=== PATIENT | male | born 1955 | race Caucasian/White ===

== ENCOUNTER 2019-12-10 09:04 | Outpatient (CLI) | payer MEDICARE, SELFPAY ==
--- NOTE | ~2019-12-10 | XR_ITS ---
XR chest 2V DATE: 12/10/2019 09:25 INDICATION: Other long-term drug therapy. History of smoking. TECHNIQUE: PA and lateral views COMPARISON: 03/12/2018 PA and lateral chest FINDINGS: There is bilateral hyperinflation, consistent with COPD. No pulmonary infiltrate or consoli dation, pleural effusion or pulmonary vascular congestion or pneumothorax. Normal heart size. No hilar or mediastinal enlargement. Included skeletal structures are unremarkable. IMPRESSION: COPD Reviewed, dictated and finalized at location B. IMPRESSION: COPD
== END 2019-12-10 09:05 | disposition home or self-care (01) ==
PROVIDERS: PCP Family Medicine; Visit Provider Internal Medicine
DX: M05.749 Rheumatoid arthritis with rheumatoid factor of unspecified hand without organ or systems involvement (principal); J44.9 Chronic obstructive pulmonary disease, unspecified; Z71.89 Other specified counseling; Z79.899 Other long term (current) drug therapy
CPT/HCPCS: 71046

== ENCOUNTER 2020-05-21 11:55 | Emergency (ER) | payer MEDICARE, SELFPAY ==
--- NOTE | ~2020-05-21 | XR_ITS ---
EXAMINATION: [id number]_CR DATE: 05/21/2020 12:18 INDICATION: Lateral left rib pain post fall TECHNIQUE: A frontal inspiratory view of the chest and 3 views of the left ribs were obtained. COMPARISON: Chest radiograph dated 12/10/2019 FINDINGS: Nondisplaced fractures of the anterior left sixth and seventh ribs. Emphysema with increased lucency and architectural distortion in the upper lung zones. No focal airspace opacities, pulmonary edema, p leural effusion or pneumothorax. Arch size is normal with prominent bilateral pericardial fat pads. IMPRESSION: 1. Nondisplaced anterior left sixth and seventh rib fractures. No pneumothorax or acute cardiopulmona ry disease. 2. Emphysema. Reviewed, dictated and finalized at location A. AND FOUND CLERK IMPRESSION: 1. Nondisplaced anterior left sixth and seventh rib fractures. No pneumothorax or acute cardiopulmonary disease. 2. Emphysema.
--- NOTE | 2020-05-21 11:58 | ED.GENADULT ---
HPI - General Adult General Chief complaint: Fall Stated complaint: L/side pain Time Seen by Provider: 05/21/20 12:17 Source: patient and RN notes reviewed Mode of arrival: ambulatory Limitations: no limitations History of Present Illness HPI narrative: 64-year-old male with history of smoking presents with concern for left rib pain. Reports approximately 1 week ago he stumbled while getting off of a step stool and fell into a Hilli[employer] countertop on his left side. Reports pain with breathing, tenderness under the left axilla and below on the left flank. He denies any difficulty breathing, shortness of breath, bruising, swelling. complaint: Rib pain Related Data Home Medications Medication Instructions Recorded Confirmed fenofibrate nanocrystallized 145 mg PO DAILY 03/10/19 05/21/20 isosorbide mononitrate 30 mg PO DAILY 03/10/19 05/21/20 lisinopril 2.5 mg PO DAILY 03/10/19 05/21/20 loratadine 5 mg PO DAILY 03/10/19 05/21/20 metoprolol succinate 50 mg PO DAILY 03/10/19 05/21/20 bicwzhmr-nsn-VJ-lycopen-lutein 1 tablet PO DAILY 03/10/19 05/21/20 [Centrum Silver] nitroglycerin 0.4 mg SUBLINGUAL Q5-15M PRN 03/10/19 05/21/20 rosuvastatin 40 mg PO DAILY 03/10/19 05/21/20 aspirin 81 mg PO DAILY 01/06/20 05/21/20 omeprazole 20 mg capsule,delayed 20 mg PO DAILY 03/10/20 05/21/20 release Allergies Allergy/AdvReac Type Severity Reaction Status Date / Time No Known Drug Allergies Allergy Mild Unknown Verified 03/18/20 09:49 Review of Systems Review of Systems: Narrative: CONSTITUTIONAL: Denies malaise, chills, sweats, or fever. CARDIOVASCULAR: Denies chest pain, palpitations, or edema. RESPIRATORY: Denies cough or dyspnea. Reports left rib pain, left-sided pain with deep breathing and coughing GASTROINTESTINAL: Denies abdominal pain SKIN: Denies bruising, open skin MUSCULOSKELETAL: Reports left rib pain All systems reviewed & are unremarkable except as noted in HPI and below PMFSH Past Medical History Medical History BMI 26.0-26.9,adult CAD (coronary artery disease) Degenerative joint disease (DJD) of lumbar spine Insomnia Other specified counseling Tobacco abuse Family History Family History Father Diabetes mellitus Family history of malignant neoplasm Mother Family history of renal cell carcinoma Social History Social History Smoking status: Current every day smoker Smoking end date: 05/20/09 Alcohol intake: never Gender identity (if verbalized by the patient): Male Comments At time of signature, agree with nursing past medical, surgical, social and family history. There is no relevant family history pertinent to the presenting complaint Exam Narrative: Exam Narrative: GENERAL: Well-appearing, well-nourished, and in no acute distress. HEAD: Normocephalic EYES: PERRLA, conjunctivae clear ENT: Mucous membranes moist. NECK: Supple. CHEST: No respiratory distress. Clear to auscultation. No bony deformities, no asymmetry. Speaks in full sentences. Tenderness palpation near rib number on the left HEART: Regular rate and rhythm. No murmur heard. SKIN: Warm, dry, no rash. NEURO: Alert and oriented x3. PSYCH: Normal mood and affect Course Course Emergency Course: Patient is aware of diagnosis, understands and agrees to treatment plan. Anticipatory guidance given. Patient agrees to follow-up as directed and is aware of reasons to seek care at the emergency department. Portions of this record may have been created with voice recognition software Vital Signs Vital signs: Vital Signs Temperature 98.3 F 05/21/20 12:36 Pulse Rate 63 05/21/20 12:36 Respiratory Rate 20 05/21/20 12:36 Blood Pressure 143/73 H 05/21/20 12:36 Pulse Oximetry 98 05/21/20 12:36 Temperature 98.3 F 05/21/20 12:36 Pulse Rate 63 05/21/20 12:36
[2020-05-21 12:36] VITALS: BP 143/73; PULSE 63; RESP 20; TEMP 36.8; O2SAT 98
--- NOTE | 2020-05-21 13:26 | PC.NURSE ---
instructed on incentive spirameter use demonstrated use
== END 2020-05-21 13:27 | disposition home or self-care (01) ==
PROVIDERS: Emergency Provider Nurse Practitioner; PCP Family Medicine
DX: R07.81 Pleurodynia (principal); S22.42XA Multiple fractures of ribs, left side, initial encounter for closed fracture; W17.89XA Other fall from one level to another, initial encounter; I25.10 Atherosclerotic heart disease of native coronary artery without angina pectoris; M47.816 Spondylosis without myelopathy or radiculopathy, lumbar region
CPT/HCPCS: 71101; 99213; G0463

== ENCOUNTER 2021-02-17 13:30 | Outpatient (CLI) | payer MEDICARE, SELFPAY ==
--- NOTE | 2021-02-17 17:06 | WPDPFTINT ---
PFT Procedure Performed PFT Procedure Performed Spirometry with Pre/Post Bronchodilator Plethysmography (Lung Vol) Diffusing Cap (DLCO) Flow Vol Loop PFT Interpretation This is a pulmonary function test with pre and post-bronchodilator spirometry, plethysmography and diffusing capacity. The test was performed and results interpreted in accordance with the 2019 and 2005 ATS/ERS Task Force guidelines respectively using the Global Lung Function Initiative-2012 reference equations. Patient demonstrated good effort and cooperation. Reproducibility criteria were met. The quality of the pre bronchodilator spirometry maneuver was Grade A and post bronchodilator spirometry maneuver was Grade B. Findings: Spirometry: There is decreased maximal expiratory airflow at low lung volumes with concave expiratory flow tracing. The pre bronchodilator FVC is 5.03 L, 111% predicted. The pre bronchodilator FEV1 is 3.15 L, 91% predicted. The FEV1: FVC ratio 63%. The post bronchodilator FVC is 5.08 L, representing 1% increase. The post bronchodilator FEV1 is 3.05 L, representing a 3% decrease. The post bronchodilator FVC FEV1: FVC ratio 60%. Plethysmography: The total lung capacity is 7.68 L, 107% predicted. The functional residual capacity is 4.31 L, 114% predicted. The residual volume is 2.45 L, 102% predicted. Diffusing capacity: The absolute diffusion capacity is 18.5, 67% predicted. The diffusing capacity corrected for alveolar volume is 2.66, 66% predicted. Impression: There is a mild obstructive abnormality with a normal FEV1 and without significant improvement after inhaling a single dose of albuterol. The lung volumes are normal. The absolute diffusing capacity is mildly decreased and remains mildly decreased when corrected for alveolar volume. There are no prior studies for comparison
== END 2021-02-17 13:31 | disposition home or self-care (01) ==
PROVIDERS: PCP Family Medicine; Visit Provider Family Medicine
DX: J43.9 Emphysema, unspecified (principal); R94.2 Abnormal results of pulmonary function studies
CPT/HCPCS: 94060; 94726; 94729

== ENCOUNTER 2021-05-05 09:54 | Outpatient (CLI) | payer MEDICARE, SELFPAY ==
--- NOTE | ~2021-05-05 | CT_ITS ---
EXAMINATION: CT lung screening DATE: 05/05/2021 10:12 INDICATION: Personal history of nicotine dependence, current smoker with 112 pack year history TECHNIQUE: Computed tomography (CT) of the chest was performed without intravenous contrast. The dose -length product (DLP) was 139.02 mGy-cm. Automated exposure control and iterative reconstruction tech Unda were employed. COMPARISON: 07/19/2008 FINDINGS: There is moderate emphysema. A 2 mm nodule in the left upper lobe is stable compared to the prior examination. There is no pleural effusion or pneumothorax. The lungs are free of acute opaciti es. There is chronic asymmetric enlargement of the right thyroid lobe. Calcified coronary artery athe rosclerosis is noted. No pathologically enlarged thoracic lymph nodes are identified. The heart size is normal. There is mild thoracic spondylosis. IMPRESSION: 1. Lung-RADS category 2: Benign appearance or behavior. Continue annual screening with noncontrast lo w-dose chest CT in 12 months. Reviewed, dictated and finalized at location A. NING MANAGER IMPRESSION: 1. Lung-RADS category 2: Benign appearance or behavior. Continue annual screeni ng with noncontrast low-dose chest CT in 12 months.
== END 2021-05-05 09:55 | disposition home or self-care (01) ==
LOC: ANHIMG 10:00
PROVIDERS: PCP Family Medicine; Visit Provider Nurse Practitioner Family
DX: Z12.2 Encounter for screening for malignant neoplasm of respiratory organs (principal); Z87.891 Personal history of nicotine dependence
CPT/HCPCS: 71271

== ENCOUNTER 2021-12-13 13:36 | Outpatient (CLI) | payer MEDICARE, SELFPAY ==
--- NOTE | ~2021-12-13 | XR_ITS ---
XR hip BI 2V w AP pelvis 12/13/2021 13:54 Indication: Osteoarthritis Procedure: AP pelvis and 2 views of each hip Comparison: No prior studies for comparison. Findings: There is mild osteoarthritis of the hips bilaterally. No fracture or traumatic malalignment . Pelvic rings are intact. Sacral foramen are symmetric. Impression: 1: Mild bilateral symmetric osteoarthritis of the hips. Reviewed, dictated and finalized at location A. Impression: 1: Mild bilateral symmetric osteoarthritis of the hips.
== END 2021-12-13 13:37 | disposition home or self-care (01) ==
LOC: ANHIMG 13:39
PROVIDERS: PCP Family Medicine; Visit Provider Internal Medicine
DX: L10.9 Pemphigus, unspecified (principal); M16.0 Bilateral primary osteoarthritis of hip; Z51.81 Encounter for therapeutic drug level monitoring; Z79.899 Other long term (current) drug therapy; Z71.89 Other specified counseling; M47.816 Spondylosis without myelopathy or radiculopathy, lumbar region
CPT/HCPCS: 73521

== ENCOUNTER 2022-05-07 09:30 | Outpatient (CLI) | payer MEDICARE, SELFPAY ==
--- NOTE | ~2022-05-07 | CT_ITS ---
EXAMINATION:CT lung screening DATE: 05/07/2022 09:46 INDICATION: Tobacco use. Current smoker with 90 pack year history. TECHNIQUE: Computed tomography (CT) of the chest was performed without intravenous contrast. Automate d exposure control and iterative reconstruction technique were employed. The dose-length product (DLP ) was 146.61 mGy-cm. COMPARISON: Chest CT 05/05/2021 FINDINGS: There is severe emphysema. A calcified left lung nodule is consistent with old granulomatou s disease. There is stable mild scarring at the lung apices. No pleural effusion. The heart size is n ormal. There are coronary artery calcifications. No pericardial effusion. There is chronic enlargemen t of right thyroid lobe. There is mild bilateral gynecomastia. There is mild thoracic spondylosis. IMPRESSION: 1. Lung-RADS category 2: Benign appearance or behavior. Continue annual screening with noncontrast lo w-dose chest CT in 12 months. Reviewed, dictated and finalized at location A. ABLE FEED MILL OPERATOR IMPRESSION: 1. Lung-RADS category 2: Benign appearance or behavior. Continue annual screeni ng with noncontrast low-dose chest CT in 12 months.
== END 2022-05-07 09:31 | disposition home or self-care (01) ==
PROVIDERS: PCP Family Medicine; Visit Provider Nurse Practitioner Family
DX: Z12.2 Encounter for screening for malignant neoplasm of respiratory organs (principal); Z87.891 Personal history of nicotine dependence
CPT/HCPCS: 71271

== ENCOUNTER 2022-06-28 01:45 | Day surgery (SDC) | payer MEDICARE, SELFPAY ==
[2022-06-18 15:16] VITALS: BMI 27.2
--- NOTE | 2022-06-27 14:36 | PM.HPGS ---
History of Present Illness History of Present Illness Consent: Risks, benefits, and alternatives have been discussed and questions answered. Patient agrees to proceed with procedure. Chief complaint: anemia Narrative: Munir Acharya is a 67 year old male Referred for colon cancer screening and for investigation of anemia. He has a history of polyps, removed about 4 years ago Review of Systems Review of Systems: All systems reviewed & are unremarkable except as noted in HPI and below PMFSH Past Medical History Medical History Abnormal PFT Anemia BMI 26.0-26.9,adult BMI 27.0-27.9,adult BMI 28.0-28.9,adult BMI 36.0-36.9,adult Bullous pemphigus CAD (coronary artery disease) COPD (chronic obstructive pulmonary disease) Degenerative joint disease (DJD) of lumbar spine Depression with anxiety Dermatitis Fatigue Hip osteoarthritis Insomnia Other specified counseling Pain, joint, hip, left Tobacco abuse Vitamin D deficiency Family History Family History Father Diabetes mellitus Family history of malignant neoplasm Cerebrovascular accident Acute myocardial infarction Heart disease Mother Family history of renal cell carcinoma Diabetes mellitus Kidney failure Sibling No problems noted. 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[employer] Gender identity (if verbalized by the patient): Male Spiritual care concerns: No Meds Home Medications and Allergies Home Medications Medication Instructions Recorded Confirmed Type fenofibrate nanocrystallized 145 145 mg PO DAILY 03/10/19 06/18/22 History mg tablet isosorbide mononitrate 30 mg 15 mg PO DAILY 03/10/19 06/18/22 History tablet,extended release 24 hr nitroglycerin 0.4 mg sublingual 0.4 mg sublingual Q5-15M PRN Chest 03/10/19 06/18/22 History tablet Pain rosuvastatin 40 mg tablet 40 mg PO DAILY 03/10/19 06/18/22 History aspirin 81 mg tablet,delayed 81 mg PO DAILY 01/06/20 06/18/22 History release omeprazole 20 mg capsule,delayed 20 mg PO DAILY 03/10/20 06/18/22 History release mupirocin 2 % topical ointment 1 applic topical TID open sores 09/05/20 06/18/22 Rx #60 grams triamcinolone acetonide 0.1 % 1 applic topical BID #80 grams 10/04/20 06/18/22 Rx topical cream metoprolol succinate 100 mg 100 mg PO DAILY 01/31/21 06/28/22 History tablet,extended release 24 hr minocycline 100 mg capsule 100 mg PO DAILY 05/18/21 06/18/22 History cyclobenzaprine 10 mg tablet 10 mg PO TID PRN muscle spasm #30 07/26/21 06/18/22 Rx tabs upadacitinib 15 mg tablet,extended 15 mg PO DAILY #90 tabs 10/13/21 06/18/22 Rx release 24 hr (Rinvoq) hydroxychloroquine 200 mg tablet 200 mg PO BID #180 tabs 12/27/21 06/18/22 Rx losartan 25 mg tablet 25 mg PO DAILY 12/29/21 06/18/22 History alprazolam 0.5 mg tablet (Xanax) 0.5 mg PO TID PRN anxiety #60 tabs 01/29/22 06/18/22 Rx escitalopram oxalate 10 mg tablet 10 mg PO DAILY #30 tabs 03/28/22 06/18/22 Rx glipizide 5 mg tablet 5 mg PO DAILY #90 tabs 05/21/22 06/18/22 Rx trazodone 50 mg tablet 50 mg PO .QHS #30 tabs 05/21/22 06/18/22 Rx prednisone 2.5 mg tablet 2.5 mg PO DAILY #40 tabs 06/07/22 06/18/22 Rx bupropion HCl 300 mg 24 hr tablet, 300 mg PO QAM #90 tabs 06/12/22 06/18/22 Rx extended release metformin 1,000 mg tablet 1,000 mg PO BID #180 tabs 06/12/22 06/18/22 Rx tamsulosin 0.4 mg cap
[2022-06-28 09:46] VITALS: BP 133/83; PULSE 63; RESP 20; TEMP 36.3; O2SAT 98
[2022-06-28] MEDS: LACTATED RINGERS 1,000 ML 150 ML IV CONT (09:56)
[2022-06-28 10:02] LABS: Glucose Point of Care 121 mg/dl (65-105)
--- NOTE | 2022-06-28 10:11 | ECG_ITS ---
Measurements Intervals [place] Rate: 61 P: 26 NV: 160 QRS: -21 QRSD: 113 T: 6 QT: 418 QTc: 422 Interpretive Statements SINUS RHYTHM WITH OCCASIONAL VENTRICULAR PREMATURE COMPLEXES BORDERLINE LEFT AXIS DEVIATION [QRS AXIS < -20] NO PREVIOUS ECG AVAILABLE FOR COMPARISON Electronically Signed On 06-28-2022 15:44:03 PAINTER by Kathryn Garcia M.D.
--- NOTE | 2022-06-28 10:14 | WPDANESEPPF ---
Anes - Initial Pre Proc Eval Procedure: Operation Date: 06/28/22 11:00 Proposed Procedures p Colonoscopy - Rob Churchill MD Date/Time: 06/28/22 10:14 Surgeon: Rob Churcihll MD Pre Op Diagnosis: anemia Patient Data Age: 67 Gender: M Height: 1.8 m Weight: 88.2 kg Last Vital Signs Temp 36.3 C L 06/28/22 09:46 Pulse 63 06/28/22 09:46 Resp 20 06/28/22 09:46 BP 133/83 06/28/22 09:46 Pulse Ox 98 06/28/22 09:46 O2 Del Method Room Air 06/28/22 09:46 Allergies Allergy/AdvReac Type Severity Reaction Status Date / Time No Known Drug Allergies Allergy Mild Unknown Verified 06/28/22 09:44 Home Medications Medication Instructions Recorded Confirmed Type fenofibrate nanocrystallized 145 145 mg PO DAILY 03/10/19 06/18/22 History mg tablet isosorbide mononitrate 30 mg 15 mg PO DAILY 03/10/19 06/18/22 History tablet,extended release 24 hr nitroglycerin 0.4 mg sublingual 0.4 mg sublingual Q5-15M PRN Chest 03/10/19 06/18/22 History tablet Pain rosuvastatin 40 mg tablet 40 mg PO DAILY 03/10/19 06/18/22 History aspirin 81 mg tablet,delayed 81 mg PO DAILY 01/06/20 06/18/22 History release omeprazole 20 mg capsule,delayed 20 mg PO DAILY 03/10/20 06/18/22 History release mupirocin 2 % topical ointment 1 applic topical TID open sores 09/05/20 06/18/22 Rx #60 grams triamcinolone acetonide 0.1 % 1 applic topical BID #80 grams 10/04/20 06/18/22 Rx topical cream metoprolol succinate 100 mg 100 mg PO DAILY 01/31/21 06/28/22 History tablet,extended release 24 hr minocycline 100 mg capsule 100 mg PO DAILY 05/18/21 06/18/22 History cyclobenzaprine 10 mg tablet 10 mg PO TID PRN muscle spasm #30 07/26/21 06/18/22 Rx tabs upadacitinib 15 mg tablet,extended 15 mg PO DAILY #90 tabs 10/13/21 06/18/22 Rx release 24 hr (Rinvoq) hydroxychloroquine 200 mg tablet 200 mg PO BID #180 tabs 12/27/21 06/18/22 Rx losartan 25 mg tablet 25 mg PO DAILY 12/29/21 06/18/22 History alprazolam 0.5 mg tablet (Xanax) 0.5 mg PO TID PRN anxiety #60 tabs 01/29/22 06/18/22 Rx escitalopram oxalate 10 mg tablet 10 mg PO DAILY #30 tabs 03/28/22 06/18/22 Rx glipizide 5 mg tablet 5 mg PO DAILY #90 tabs 05/21/22 06/18/22 Rx trazodone 50 mg tablet 50 mg PO .QHS #30 tabs 05/21/22 06/18/22 Rx prednisone 2.5 mg tablet 2.5 mg PO DAILY #40 tabs 06/07/22 06/18/22 Rx bupropion HCl 300 mg 24 hr tablet, 300 mg PO QAM #90 tabs 06/12/22 06/18/22 Rx extended release metformin 1,000 mg tablet 1,000 mg PO BID #180 tabs 06/12/22 06/18/22 Rx tamsulosin 0.4 mg capsule See Rx Instructions .Route 06/12/22 06/18/22 Rx .COMPLEX #90 caps fluticasone fur. 100 mcg-umeclid 1 inh inhalation Q24H 06/15/22 06/18/22 History 62.5 mcg-vilant 25 mcg inhalat.powder (Trelegy Ellipta) sitagliptin phosphate 100 mg 100 mg PO DAILY 06/18/22 06/18/22 History tablet (Januvia) Laboratory Tests 06/28/22 09:53 POC Capillary Glucose 121 mg/dl H mg/dl (65-105) Patient hx anesthesia problems: none Family hx anesthesia problems: none Results Review: All pre-operative results and documents have been reviewed as part of the pre-operative evaluation. [facility] Past Medical History Medical History Abnormal PFT Anemia BMI 26.0-26.9,adult BMI 27.0-27.9,adult BMI 28.0-28.9,adult BMI 36.0-36.9,adult Bullous pemphigus CAD (coronary artery disease) COPD (chronic obstructive pulmonary disease) Degenerative joint disease (DJD) of lumbar spine Depression with anxiety Dermatitis Fatigue Hip osteoarthritis Insomnia Other specified counseling Pain, joint, hip, left Tobacco abuse Vitamin D deficiency Family History Family History Father Diabetes mellitus Family history of malignant neoplasm Cerebrovascular accident Acute myocardial infarction Heart disease Mother Family history of renal ce
--- NOTE | 2022-06-28 10:19 | SUR.PREOP ---
Pt states he felt like he was in atrial fibrillation last night with chest pain when he lied on his left side. Pt took Nitroglycerin last night. Dr. Chacon notified (anesthesiologist). EKG ordered and reviewed by Dr. Chacon who states ok to proceed with colonoscopy.
[2022-06-28 11:02] VITALS: BP 96/60; PULSE 55; RESP 16; O2SAT 98
[2022-06-28 11:12] VITALS: BP 119/56; PULSE 53; RESP 16; O2SAT 96
[2022-06-28 11:22] VITALS: BP 120/58; PULSE 65; RESP 20; O2SAT 100
== END 2022-06-28 11:32 | disposition home or self-care (01) ==
PROVIDERS: PCP Family Medicine; Visit Provider Internal Medicine Gastroenterology
PROC: 0DJD8ZZ Inspection of Lower Intestinal Tract, Via Natural or Artificial Opening Endoscopic (ICD-10-PCS; CPT 45378; principal; 2022-06-28 11:00)
DX: D64.9 Anemia, unspecified (principal); K64.8 Other hemorrhoids; D12.2 Benign neoplasm of ascending colon; I25.10 Atherosclerotic heart disease of native coronary artery without angina pectoris; J44.9 Chronic obstructive pulmonary disease, unspecified; F41.8 Other specified anxiety disorders; E55.9 Vitamin D deficiency, unspecified; F17.210 Nicotine dependence, cigarettes, uncomplicated
CPT/HCPCS: 45380; 82948; 88305; 93005; J2704; J7120

== ENCOUNTER 2023-02-16 10:05 | Emergency (ER) | payer MEDICARE, SELFPAY ==
--- NOTE | ~2023-02-16 | XR_ITS ---
EXAMINATION: XR hand RT min 3V INDICATION: Right hand pain TECHNIQUE: Three views of the right hand are obtained. COMPARISON: None available FINDINGS: Bone alignment is normal. There is no fracture. There is mild osteoarthritis of multiple in terphalangeal joints. There is medial soft tissue swelling of the hand near the metacarpals. IMPRESSION: 1. No acute osseous abnormality. Reviewed, dictated and finalized at location F.
[2023-02-16 10:15] VITALS: BP 137/58; PULSE 62; RESP 18; TEMP 36.2; O2SAT 100
--- NOTE | 2023-02-16 10:36 | ED.UPPEXIN ---
HPI - Extremity Injury (Upper) General Chief Complaint: Extremity Injury, Upper Stated Complaint: fall /upper extremity injuy Time Seen by Provider: 02/16/23 10:25 Source: patient and RN notes reviewed Mode of arrival: ambulatory Limitations: no limitations History of Present Illness HPI narrative: Patient presents today complaining of right hand injury. He tripped over a portion of the [employer] yesterday and fell onto his outstretched hand. Denies numbness or tingling. Currently rates his pain 6/10 and has tried no [id number] interventions prior to arrival. History of rheumatoid arthritis. States pain has improved since the injury. Related Data Home Medications Medication Instructions Recorded Confirmed fenofibrate nanocrystallized 145 145 mg PO DAILY 03/10/19 02/11/23 mg tablet isosorbide mononitrate 30 mg 15 mg PO DAILY 03/10/19 02/11/23 tablet,extended release 24 hr nitroglycerin 0.4 mg sublingual 0.4 mg sublingual Q5-15M PRN Chest 03/10/19 02/11/23 tablet Pain rosuvastatin 40 mg tablet 40 mg PO DAILY 03/10/19 02/11/23 aspirin 81 mg tablet,delayed 81 mg PO DAILY 01/06/20 02/11/23 release omeprazole 20 mg capsule,delayed 20 mg PO DAILY 03/10/20 02/11/23 release minocycline 100 mg capsule 100 mg PO DAILY 05/18/21 02/11/23 losartan 25 mg tablet 50 mg PO DAILY 02/11/23 02/11/23 Allergies Allergy/AdvReac Type Severity Reaction Status Date / Time No Known Drug Allergies Allergy Mild Unknown Verified 02/11/23 11:30 Review of Systems Review of Systems: CONSTITUTIONAL: Denies body aches, fever, chills, or sweats. EYES: Denies visual changes, redness, or discharge. ENT: Denies rhinorrhea, congestion, sore throat, or otalgia. CARDIOVASCULAR: Denies chest pain, palpitations, or edema. RESPIRATORY: Denies cough or dyspnea. GASTROINTESTINAL: Denies abdominal pain, nausea, vomiting, or diarrhea. GENITOURINARY: Denies dysuria or hematuria. SKIN: Denies rash, itching, or wounds. MUSCULOSKELETAL: + right hand injury NEUROLOGIC: Denies headache, numbness, tingling, or weakness. PSYCH: Denies depression or anxiety. PMFSH Past Medical History Medical History Abnormal PFT Anemia BMI 26.0-26.9,adult BMI 27.0-27.9,adult BMI 28.0-28.9,adult BMI 36.0-36.9,adult Bullous pemphigus CAD (coronary artery disease) COPD (chronic obstructive pulmonary disease) Degenerative joint disease (DJD) of lumbar spine Depression with anxiety Dermatitis Fatigue Fatigue Hip osteoarthritis Insomnia Other specified counseling Pain, joint, hip, left Tobacco abuse Vitamin D deficiency Family History Family History Father Diabetes mellitus Family history of malignant neoplasm Cerebrovascular accident Acute myocardial infarction Heart disease Mother Family history of renal cell carcinoma Diabetes mellitus Kidney failure Sibling No problems noted. Social History Social History Smoking packs per day: 0.75 Smoking cigarettes per day: 15.0 Years smoked: 45 Smoking pack-years: 33.75 Smoking status: Current some day smoker Tobacco type: cigarettes Second hand tobacco smoke exposure: Yes Alcohol intake: never Substance use: former Substance use type: marijuana Last use: 2021 Lack of Transportation: No Lack of Food: Never True Current Housing: I Have Housing Concerned About Future Housing: No Difficulty Paying Gas/Electric Bills: No Difficulty Paying for Meds: No Currently Unemployed: No Education: High School Diploma/GED Difficulty w/ Childcare or Family Care: No Living arrangements: with family Occupation/Education: retired Additional occupation/education comments: [employer] Gender identity (if verbalized by the patient): Male Spiritual care
== END 2023-02-16 10:47 | disposition home or self-care (01) ==
PROVIDERS: Emergency Provider Nurse Practitioner; PCP Family Medicine
DX: S60.221A Contusion of right hand, initial encounter (principal); I25.10 Atherosclerotic heart disease of native coronary artery without angina pectoris; J44.9 Chronic obstructive pulmonary disease, unspecified; F17.210 Nicotine dependence, cigarettes, uncomplicated; W01.0XXA Fall on same level from slipping, tripping and stumbling without subsequent striking against object, initial encounter
CPT/HCPCS: 73130; 99213; G0463

== ENCOUNTER 2023-03-12 10:48 | Outpatient (CLI) | payer MEDICARE, SELFPAY ==
[2023-03-12 11:09] LABS: Hematocrit 36.5 % (42.0-52.0); Hemoglobin 11.8 g/dL (14.0-18.0); Mean Corpuscular HGB Conc 32.3 g/dl (32-36); Mean Corpuscular Hemoglobin 30.1 pg (26-34); Mean Corpuscular Volume 93.1 fl (80-100); Mean Platelet Volume 9.6 fl (7.4-10.4); Platelet Count Result 326 k/mm3 (150-375); Red Blood Count 3.92 M/mm3 (4.6-6.20); Red Cell Distribution Width 15.5 % (11.5-14.5); White Blood Count 7.3 K/mm3 (4.5-10.0)
[2023-03-12 11:31] LABS: Appearance Urine Clear (Clear); Bacteria Urine None Seen /hpf; Bilirubin Urine Negative (Negative); Blood Urine Negative (Negative); Color Urine Yellow (Yellow); Glucose Urine UA 2+ mg/dL (Negative); Ketones Urine Negative (Negative); Leukocyte Esterase Ur Trace LEU/UL (Negative); Nitrate Urine Negative (Negative); Non Pathogenic Casts 0-2; Protein Urine Negative (Negative); RBC Urine 0-2 /hpf (0-2); Specific Grav Ur 1.013 (1.001-1.035); Squamous Epithelial Cell Urine None seen /hpf (Few); Urobilinogen Urine 0.2 mg/dL (<2.0); pH Urine 6.5 (5.0-9.0)
[2023-03-12 11:45] LABS: Alanine Aminotransferase 23 U/L (6-50); Albumin Level 4.5 g/dL (3.5-5.1); Alkaline Phosphatase 64 U/L (38-126); Anion Gap 8 mmol/L (8-16); Aspartate Amino Transferase 30 U/L (17-59); Bilirubin,Total 0.6 mg/dL (0.2-1.3); Blood Urea Nitrogen 24 mg/dL (9-20); CRP < 0.5 mg/dL (<1.0); Calcium 9.5 mg/dL (8.4-10.2); Carbon Dioxide 22 mmol/L (22-30); Chloride 106 mmol/L (98-107); Estimated Glomerular Filt Rate 28; Glucose 125 mg/dL (65-110); Potassium 4.6 mmol/L (3.4-5.0); Sodium 136 mmol/L (137-145); Uric Acid 5.9 mg/dL (3.5-8.5)
[2023-03-12 11:46] LABS: Erythrocyte Sedimentation Rate 45 mm/hr (0-20)
[2023-03-12 12:05] LABS: Add Urine Microscopic? YES
== END 2023-03-12 10:49 | disposition home or self-care (01) ==
PROVIDERS: PCP Family Medicine; Referring Provider Internal Medicine; Visit Provider Internal Medicine Hematology & Oncology
DX: M05.749 Rheumatoid arthritis with rheumatoid factor of unspecified hand without organ or systems involvement (principal); Z79.899 Other long term (current) drug therapy
CPT/HCPCS: 36415; 80053; 81001; 84550; 85027; 85652; 86140; 87086

== ENCOUNTER 2023-05-08 08:08 | Outpatient (CLI) | payer MEDICARE, SELFPAY ==
--- NOTE | ~2023-05-08 | CT_ITS ---
CT Scan of the Chest without Contrast: Clinical Indication: Lung cancer screening, personal history of nicotine dependence Technique: Contiguous sections were acquired throughout the chest without intravenous contrast. Dose reduction technique was used on this scan by utilizing automated exposure control and iterative recon struction technique. The dose-length product (DLP) was 137.82 mGy-cm. COMPARISON: 05/07/2022 Findings: There is no evidence of any significant mediastinal, hilar or axillary lymphadenopathy. The mediastin al soft tissues appear normal. There is no evidence of pleural or pericardial effusion. Advanced emphysema present. No pulmonary nodule evident. Images through the upper abdomen reveal no abnormalities. Impression: Lung RADS 1: Negative. 12 month follow-up screening CT advised. Advanced emphysema. Reviewed, dictated and finalized at location . Impression: Lung RADS 1: Negative. 12 month follow-up screening CT advised. Advanced emphysema.
== END 2023-05-08 08:09 | disposition home or self-care (01) ==
PROVIDERS: PCP Family Medicine; Visit Provider Nurse Practitioner Family
DX: Z12.2 Encounter for screening for malignant neoplasm of respiratory organs (principal); Z87.891 Personal history of nicotine dependence; J43.9 Emphysema, unspecified
CPT/HCPCS: 71271

== ENCOUNTER 2023-06-04 13:04 | Outpatient (CLI) | payer MEDICARE, SELFPAY ==
[2023-06-04 13:44] LABS: Hematocrit 35.6 % (42.0-52.0); Hemoglobin 11.5 g/dL (14.0-18.0); Mean Corpuscular HGB Conc 32.3 g/dl (32-36); Mean Corpuscular Hemoglobin 29.6 pg (26-34); Mean Corpuscular Volume 91.8 fl (80-100); Mean Platelet Volume 10.1 fl (7.4-10.4); Platelet Count Result 307 k/mm3 (150-375); Red Blood Count 3.88 M/mm3 (4.6-6.20); Red Cell Distribution Width 15.9 % (11.5-14.5); White Blood Count 7.4 K/mm3 (4.5-10.0)
[2023-06-04 16:38] LABS: Alanine Aminotransferase 21 U/L (6-50); Albumin Level 3.9 g/dL (3.5-5.1); Alkaline Phosphatase 66 U/L (38-126); Anion Gap 8 mmol/L (8-16); Aspartate Amino Transferase 30 U/L (17-59); Bilirubin,Total 0.4 mg/dL (0.2-1.3); Blood Urea Nitrogen 30 mg/dL (9-20); CRP < 0.5 mg/dL (<1.0); Calcium 9.2 mg/dL (8.4-10.2); Carbon Dioxide 23 mmol/L (22-30); Chloride 107 mmol/L (98-107); Estimated Glomerular Filt Rate 25; Glucose 69 mg/dL (65-110); Potassium 4.9 mmol/L (3.4-5.0); Sodium 138 mmol/L (137-145)
[2023-06-04 17:06] LABS: Appearance Urine Clear (Clear); Bilirubin Urine Negative (Negative); Blood Urine Negative (Negative); Color Urine Yellow (Yellow); Glucose Urine UA 2+ mg/dL (Negative); Ketones Urine Negative (Negative); Leukocyte Esterase Ur Negative LEU/UL (Negative); Nitrate Urine Negative (Negative); Protein Urine Negative (Negative); Urobilinogen Urine 0.2 mg/dL (<2.0)
[2023-06-04 17:24] LABS: Erythrocyte Sedimentation Rate 64 mm/hr (0-20)
[2023-06-04 17:33] LABS: Add Urine Microscopic? YES
== END 2023-06-04 13:05 | disposition home or self-care (01) ==
PROVIDERS: Internal Medicine; PCP Family Medicine; Visit Provider Internal Medicine Hematology & Oncology
DX: M06.9 Rheumatoid arthritis, unspecified (principal); M19.90 Unspecified osteoarthritis, unspecified site; Z79.899 Other long term (current) drug therapy; M05.749 Rheumatoid arthritis with rheumatoid factor of unspecified hand without organ or systems involvement
CPT/HCPCS: 36415; 80053; 81001; 85027; 85652; 86140

== ENCOUNTER 2023-08-22 10:22 | Outpatient (CLI) | payer MEDICARE, SELFPAY ==
[2023-08-22 10:55] LABS: Alveolar/Arterial O2 Gradient 31.2 mmHg; Base Excess ABG -4.1 mEq/l (+/-2.0); Fractional Inspired Oxygen 21 %; HCO3 ABG 19.9 mEq/l (22.0-26.0); Oxygen Content ABG 16.3 %vol (16.0-22.0); Oxygen Saturation ABG 95.8 % (95.0-100.0); Oxyhemoglobin 91.6 % THb (90.0-100.0); PCO2 ABG 32.9 mmHg (35.0-45.0); PO2 ABG 79.1 mmHg (80.0-100.0); PO2 FiO2 Ratio Arterial Blood 3.77 %; Total Hemoglobin 12.6 g/dL (12.0-18.0); pH ABG 7.399 (7.350-7.450)
[2023-08-22 11:15] LABS: Device ROOM AIR; Modified Allen's Test Pass; Site Drawn RIGHT RADIAL
--- NOTE | 2023-08-22 17:09 | WPDPFTINT ---
PFT Procedure Performed PFT Procedure Performed Spirometry with Pre/Post Bronchodilator Plethysmography (Lung Vol) Diffusing Cap (DLCO) Flow Vol Loop PFT Interpretation This is a pulmonary function test with pre and post-bronchodilator spirometry, plethysmography and diffusing capacity. The test was performed and results interpreted in accordance with the 2019 and 2005 ATS/ERS Task Force guidelines respectively using the Global Lung Function Initiative-2012 reference equations. Patient demonstrated good effort and cooperation. Reproducibility criteria were met. The quality of the pre bronchodilator spirometry maneuver was Grade A and post bronchodilator spirometry maneuver was Grade A. Findings: Spirometry: there is decreased maximal expiratory airflow at low lung volumes with concave expiratory flow tracing. The contour the inspiratory flow tracing is normal. The pre bronchodilator FVC is 4.60 L, 104% predicted. The pre bronchodilator FEV1 is 2.85 L, 85% predicted. The pre bronchodilator FEV1: FVC ratio 62%. The post bronchodilator FVC is 4.86 L, representing a 6% increase. The post bronchodilator FEV1 is 2.92 L, representing a 2% increase. The post bronchodilator FEV1: FVC ratio is 60%. Plethysmography: The total lung capacity is 7.27 L, 101% predicted. The functional residual capacity is 4.04 L, 106% predicted. The residual volume is 2.53 L, 102% predicted. Diffusing capacity: The diffusing capacity unadjusted for hemoglobin and carboxyhemoglobin is 14.9, 56% predicted. The diffusing capacity adjusted for alveolar volume is 2.51, 64% predicted. In comparison to previous pulmonary function testing on 02/17/2021 the post bronchodilator FVC is unchanged from 5.08 L to 4.86 L. The post bronchodilator FEV1 is unchanged from 3.05 L to 2.92 L. The total lung capacity is unchanged from 7.68 L to 7.27 L. The functional residual capacity is unchanged from 4.31 L to 4.04 L. The residual volume is unchanged from 2.45 L to 2.53 L. The diffusing capacity unadjusted for hemoglobin and carboxyhemoglobin is decreased from 18.5 to 14.9. The diffusing capacity adjusted for alveolar volume is unchanged from 2.66 to 2.51. Impression: There is a mild obstructive abnormality with a normal FEV1. There is no significant improvement after inhaling a single dose of albuterol. The lung volumes are normal. The diffusing capacity unadjusted for hemoglobin and carboxyhemoglobin is moderately decreased and remains mildly decreased when adjusted for alveolar volume. In comparison to prior pulmonary function testing on 02/17/2021 there has been a greater than anticipated time dependent decrease in the diffusing capacity unadjusted for hemoglobin and carboxyhemoglobin with no significant change in the FVC, FEV1, total lung capacity, functional residual capacity, residual volume or diffusing capacity adjusted for alveolar volume. Clinical correlation is recommended.
== END 2023-08-22 10:23 | disposition home or self-care (01) ==
LOC: ANHPFT 10:23
PROVIDERS: PCP Family Medicine; Visit Provider Nurse Practitioner Family
DX: J44.9 Chronic obstructive pulmonary disease, unspecified (principal); R09.02 Hypoxemia; R94.2 Abnormal results of pulmonary function studies
CPT/HCPCS: 36600; 82805; 94060; 94726; 94729

== ENCOUNTER 2023-08-27 12:31 | Outpatient (CLI) | payer MEDICARE, SELFPAY ==
[2023-08-27 12:53] LABS: Hematocrit 36.4 % (42.0-52.0); Hemoglobin 11.8 g/dL (14.0-18.0); Mean Corpuscular HGB Conc 32.4 g/dl (32-36); Mean Corpuscular Hemoglobin 29.9 pg (26-34); Mean Corpuscular Volume 92.4 fl (80-100); Mean Platelet Volume 9.5 fl (7.4-10.4); Platelet Count Result 327 k/mm3 (150-375); Red Blood Count 3.94 M/mm3 (4.6-6.20); Red Cell Distribution Width 16.6 % (11.5-14.5); White Blood Count 7.7 K/mm3 (4.5-10.0)
[2023-08-27 14:06] LABS: Appearance Urine Clear (Clear); Bilirubin Urine Negative (Negative); Blood Urine Negative (Negative); Color Urine Yellow (Yellow); Glucose Urine UA 2+ mg/dL (Negative); Ketones Urine Negative (Negative); Leukocyte Esterase Ur Negative LEU/UL (Negative); Nitrate Urine Negative (Negative); Protein Urine Negative (Negative); Specific Grav Ur 1.011 (1.001-1.035); Urobilinogen Urine 0.2 mg/dL (<2.0)
[2023-08-27 14:12] LABS: Alanine Aminotransferase 30 U/L (6-50); Albumin Level 4.3 g/dL (3.5-5.1); Alkaline Phosphatase 65 U/L (38-126); Anion Gap 9 mmol/L (4-12); Aspartate Amino Transferase 34 U/L (17-59); Bilirubin,Total 0.4 mg/dL (0.2-1.3); Blood Urea Nitrogen 27 mg/dL (9-20); CRP < 0.5 mg/dL (<1.0); Calcium 9.7 mg/dL (8.4-10.2); Carbon Dioxide 20 mmol/L (22-30); Chloride 110 mmol/L (98-107); Estimated Glomerular Filt Rate 24; Glucose 166 mg/dL (65-110); Potassium 4.4 mmol/L (3.4-5.0); Sodium 139 mmol/L (137-145)
[2023-08-27 14:36] LABS: Add Urine Microscopic? NO
[2023-08-27 14:42] LABS: Erythrocyte Sedimentation Rate 30 mm/hr (0-20)
== END 2023-08-27 12:32 | disposition home or self-care (01) ==
PROVIDERS: Internal Medicine; PCP Family Medicine; Visit Provider Internal Medicine Hematology & Oncology
DX: M06.9 Rheumatoid arthritis, unspecified (principal); M19.90 Unspecified osteoarthritis, unspecified site
CPT/HCPCS: 36415; 80053; 81003; 85027; 85652; 86140

== ENCOUNTER 2023-08-29 08:12 | Outpatient (CLI) | payer MEDICARE, SELFPAY ==
--- NOTE | 2023-09-02 10:18 | WPDSIXMINUTE ---
Six Minute Walk Procedure Procedure Performed Pulmonary Stress Test (6 min walk) Six Minute Walk Six Minute Walk: This is a 6 minute walk test. The test was performed and interpreted in accordance with the 2014 ERS/ATS task force guidelines. Findings: The patient's resting room air oxygen saturation measured by pulse oximetry was 94% and heart rate was 55 bpm. Patient ambulated for 396 meters and oxygen saturation remained 94 to 98%. Heart rate at the end of the study was 74 bpm. The patient did not qualify for supplemental oxygen at rest or with ambulation. There are no prior studies for comparison.
== END 2023-08-29 08:13 | disposition home or self-care (01) ==
PROVIDERS: PCP Family Medicine; Visit Provider Physician Assistant
DX: R06.09 Other forms of dyspnea (principal)
CPT/HCPCS: 94618

== ENCOUNTER 2024-05-18 10:15 | Outpatient (CLI) | payer MEDICARE, SELFPAY ==
--- NOTE | ~2024-05-18 | CT_ITS ---
EXAMINATION:CT lung screening DATE: 05/18/2024 10:34 INDICATION: Personal history of nicotine dependence. Current smoker with 90 pack year history. TECHNIQUE: Computed tomography (CT) of the chest was performed without intravenous contrast. Automate d exposure control and iterative reconstruction technique were employed. The dose-length product (DLP ) was 158.34 mGy-cm. COMPARISON: chest CT 05/08/23 FINDINGS: There is severe emphysema. There is a 3 mm nodule in left upper lobe. There is mild atelect asis in right lower lobe. There is mild scarring at the lung apices. No pleural effusion. The heart s ize is normal. There are coronary artery calcifications. No pericardial effusion. There is severe cer vical spondylosis and mild thoracic spondylosis. IMPRESSION: 1. Lung-RADS category 2: Benign appearance or behavior. Continue annual screening with noncontrast lo w-dose chest CT in 12 months. Reviewed, dictated and finalized at location A. DOWN OPERATOR IMPRESSION: 1. Lung-RADS category 2: Benign appearance or behavior. Continue annual screeni ng with noncontrast low-dose chest CT in 12 months.
== END 2024-05-18 10:16 | disposition home or self-care (01) ==
LOC: ANHIMG 10:16
PROVIDERS: PCP Family Medicine; Visit Provider Nurse Practitioner Family
DX: Z12.2 Encounter for screening for malignant neoplasm of respiratory organs (principal); Z87.891 Personal history of nicotine dependence
CPT/HCPCS: 71271

== ENCOUNTER 2025-03-08 18:34 | Emergency (ER) | payer MEDICARE, SELFPAY ==
--- NOTE | ~2025-03-08 | XR_ITS ---
XR ankle RT min 3V INDICATION: fall, right ankle pain, swelling lateral ankle . COMPARISON: None. FINDINGS: Frontal, lateral and oblique views of the right ankle demonstrate no acute fracture or dislocation. The ankle mortise is intact. There is soft tissue swelling over the lateral malleolus. No radiopaque foreign body is seen. IMPRESSION: No acute fracture or dislocation is noted in the right ankle. Reviewed, dictated and finalized at location S.
--- NOTE | 2025-03-08 18:40 | ED.LOWEXIN ---
HPI - Extremity Injury (Lower) General Chief Complaint: Extremity Injury, Lower Stated Complaint: Fall Time Seen by Provider: 03/08/25 18:36 Source: patient Mode of arrival: ambulatory Limitations: no limitations History of Present Illness HPI Narrative: Munir is a 69-year-old male patient presenting to the clinic today with complaints of right ankle pain after falling this morning. This occurred around 10:00 a.m. this morning. He reports he was walking down the stairs when he came upon the 2nd to last stair and (inverted) twisted his ankle. Is having pain to the medial and lateral ankle. Rates pain currently a 2/10. Has not taken a Tylenol or ibuprofen. Did apply ice prior to arrival. Is using a wheeled walker and able to bear weight. Related Data Home Medications ?Medication ?Instructions ?Recorded ?Confirmed ?Last Taken ?Type aspirin 81 mg tablet,delayed 81 mg PO DAILY 01/06/20 02/01/25 Unknown History release acetaminophen 500 mg capsule 500 mg PO .q8 08/27/24 02/01/25 Unknown History pantoprazole 40 mg tablet,delayed 40 mg PO QAM 08/27/24 02/01/25 Unknown History release (Protonix) Allergies Allergy/AdvReac Type Severity Reaction Status Date / Time No Known Drug Allergies Allergy Mild Unknown Verified 03/08/25 18:52 Review of Systems Review of Systems: Pertinent positives per HPI. Patient denies any fever, chills, rash, headache, visual changes, dizziness, cough, runny nose, sore throat, shortness of breath, chest pain, palpitations, nausea, vomiting, diarrhea, constipation, abdominal pain, or any urinary issues. [facility] Past Medical History Medical History Rib fractures HLD (hyperlipidemia) HTN (hypertension) Closed displaced fracture of left femoral neck Anemia in chronic illness Accelerated essential hypertension Diabetes mellitus Fatigue Anemia Depression with anxiety Hip osteoarthritis Fatigue Vitamin D deficiency Abnormal PFT COPD (chronic obstructive pulmonary disease) Bullous pemphigus Dermatitis Pain, joint, hip, left Tobacco abuse Insomnia Other specified counseling CAD (coronary artery disease) Degenerative joint disease (DJD) of lumbar spine Family History Family History Father Diabetes mellitus Family history of malignant neoplasm Cerebrovascular accident Acute myocardial infarction Heart disease Mother Family history of renal cell carcinoma Diabetes mellitus Kidney failure Sibling Diabetes mellitus Social History Social History Smoking packs per day: 0.5 Smoking cigarettes per day: 10.0 Years smoked: 50 Smoking pack-years: 25.00 Smoking status: Former smoker Tobacco type: cigarettes Second hand tobacco smoke exposure: Yes Smoking end date: 08/18/24 Alcohol intake: never Substance use: never Substance use type: does not use Last use: 2021 Do You Feel Safe in your Home?: Yes Lack of Transportation: No Lack of Food: Never True Current Housing: I Have Housing Concerned About Future Housing: No Difficulty Paying Gas/Electric Bills: No Difficulty Paying for Meds: No Currently Unemployed: No Education: High School Diploma/GED Difficulty w/ Childcare or Family Care: No Living arrangements: with family Occupation/Education: retired Additional occupation/education comments: [employer] Gender identity (if verbalized by the patient): Male Sexual Orientation (if Verbalized by the Patient): Straight or Heterosexual Spiritual care concerns: No Agree to blood products: Yes Comments At the time of my signature, I reviewed and agree with the nursing past medical, surgical, social, and family history. There is no relevant family history pertinent to the patient complaint. Exam Narrative: General: Well-developed, well nourished, in no apparent distress Head: Normocephalic, atraumatic. Cardio: Regular rate and rhythm, s1 and s2 normal, no murmur appreciated. Resp: Clear to auscultation bilaterally, no rhonchi, rales, wheezing or rubs. Musculoskeletal: No deformity, mild swelling noted to the right ankle, tender to palpation over the lateral malleolus and medial malleolus, limited range of motion due to pain, plantar flexion and dorsal flexion strong, pain with valgus and varus testing, muscle strength strong and equal, peripheral pulse strong, no edema, no cyanosis, normal gait and station Course Course Emergency Course: Portions of this record may have been created with voice recognition software. Level of Care: Express Care Visit Vital Signs Vital signs: Vital Signs Temperature 36.6 C 03/08/25 18:45 Pulse Rate 71 03/08/25 18:45 Respiratory Rate 16 03/08/25 18:45 Blood Pressure 142/71 H 03/08/25 18:45 Pulse Oximetry 97 03/08/25 18:45 Oxygen Delivery Room Air 03/08/25 18:45 Temperature 36.6 C 03/08/25 18:45 Pulse Rate 71 03/08/25 18:45 Respiratory Rate 16 03/08/25 18:45 Blood Pressure 142/71 H 03/08/25 18:45 Pulse Oximetry 97 03/08/25 18:45 Oxygen Delivery Room Air 03/08/25 18:45 Vital signs reviewed MDM - Extremity Injury (Lower) MDM Narrative Medical decision making narrative: At the time of visit patient is resting comfortably on the exam table. Patient appears to be nontoxic. Complaints of right ankle pain after falling this morning. This occurred around 10:00 a.m. this morning. He reports he was walking down the stairs when he came upon the 2nd to last stair and (inverted) twisted his ankle. Is having pain to the medial and lateral ankle. Rates pain currently a 2/10. Has not taken a Tylenol or ibuprofen. Did apply ice prior to arrival. Is using a wheeled walker and able to bear weight. On exam patient does have some mild ankle swelling, no bruising noted, no deformity noted, tenderness to palpation over the medial malleolus and the lateral malleolus, pain with range of motion, has good plantar and dorsal flexion. Pain with valgus and varus testing. X-ray right ankle ordered Diagnostics: X-ray of the right ankle was ordered and was negative for any fracture or malalignment Plan: I suspect patient has right ankle sprain. Keyshawn wrap was applied, sensation, circulation, motion within normal limits after application of Keyshawn wrap. Ice pack was also given to the patient. Supportive measures were discussed with the patient and they voiced understanding discharge instructions and agrees to treatment plan. Return precautions reviewed Differential Diagnosis Differential diagnosis: Likely ankle sprain and strain and ankle fracture Imaging Data Radiologist's impression: ITS Impressions Ankle X-Ray 03/08/25 19:01 IMPRESSION: No acute fracture or dislocation is noted in the right ankle. Discharge Plan Discharge Clinical Impression: Right ankle sprain Qualifiers: Encounter type: initial encounter Involved ligament of ankle: unspecified ligament Qualified Code(s): S93.401A - Sprain of unspecified ligament of right ankle, initial encounter Patient Disposition: Home Condition: Stable Instructions: Antibiotic Form, Ankle Sprain (ED) Additional Instructions: Rest, ice, elevate, and wear keyshawn wrap as directed Tylenol/motrin for pain as discussed. Gradually bear weight-may use wheeled walker No running or sports until healed. Follow up with your PCP if symptoms persist more than 1 week. Patient Language: Bengali Prescriptions: No Action aspirin 81 mg Tablet,Delayed Release (Dr/Ec) 81 mg PO DAILY escitalopram oxalate 10 mg tablet See Rx Instructions .ROUTE .COMPLEX Qty: 90 1RF Dose Instruction: TAKE 1 TABLET BY MOUTH DAILY Rx Instructions: TAKE 1 TABLET BY MOUTH DAILY bupropion HCl 300 mg tablet extended release 24 hr 300 mg PO QAM Qty: 90 1RF losartan 50 mg tablet 50 mg PO DAILY Qty: 90 3RF metoprolol succinate 100 mg tablet extended release 24 hr 100 mg PO DAILY Qty: 90 3RF Rx Instructions: begin 1 week after starting the losartan hydroxychloroquine [Plaquenil] 200 mg tablet 400 mg PO DAILY Qty: 180 0RF trazodone 50 mg tablet 50 mg PO .QHS Qty: 90 1RF acetaminophen 500 mg capsule 500 mg PO .q8 pantoprazole [Protonix] 40 mg tablet,delayed release (DR/EC) 40 mg PO QAM tamsulosin 0.4 mg capsule 0.4 mg PO QPM Qty: 30 0RF Patient Comments: with dinner Rx Instructions: TAKE ONE CAPSULE BY MOUTH DAILY gabapentin 300 mg capsule 300 mg PO TID Qty: 90 0RF rosuvastatin 40 mg Tablet 40 mg PO QPM Qty: 30 0RF Follow-up/Referrals: Modesto Alonzo MD [Primary Care Provider, [facility] Time of Disposition: 19:05 Quality NIHSS Nursing Documentation ED NIHSS nursing documentation: reviewed/agree
[2025-03-08 18:45] VITALS: BP 142/71; PULSE 71; RESP 16; TEMP 36.6; O2SAT 97
--- OUTSIDE RECORDS SUMMARY | 2025-03-08 19:21 | XMS_ITS | Clinical Summary ---
Author Organization [facility] Address [address] [place] [address] Care Team Providers Care National Sales Manager Name Role Phone Modesto Alonzo MD Primary Care Provider [phone] Modesto Alonzo MD Unavailable [phone] Allergies No known active allergies Medications tamsulosin (FLOMAX) 0.4 mg capsule,extended release 24hr take 1 capsule by oral route every day 1/2 hour following the same meal each day 0 0 01/21/20 14 Active glipiZIDE (GLUCOTROL) 10 mg tablet take 1/2 tablet by oral route twice daily before a meal 0 0 02/24/20 16 Active SITagliptin (JANUVIA) 100 mg tablet take 1 tablet by oral route every day 0 0 07/16/19 17 Active hydroxychloroquine (PLAQUENIL) 200 mg tablet Take 1 tablet (200 mg total) by mouth 2 (two) times a day Active traZODone (DESYREL) 50 mg tablet Take 1 tablet (50 mg total) by mouth nightly 03/20/20 21 Active Rinvoq 15 mg tablet extended release 24 hr 03/15/20 21 Active metoprolol XL (TOPROL-XL) 100 mg 24 hr tablet Take 1 tablet (100 mg total) by mouth daily 90 tablet 3 04/06/20 21 Active Additional Information Patient taking differently: 50 mgoral Daily, Reported on 04/01/2024 aspirin (Adult Low Dose Aspirin) 81 mg enteric coated tablet Take 1 tablet (81 mg total) by mouth daily 04/06/20 21 Active nitroglycerin (NITROSTAT) 0.[address] 1 tablet (0.4 mg total) under the tongue every 5 (five) minutes as needed for chest pain 25 tablet 3 02/21/20 23 Active cyclobenzaprine (FLEXERIL) 10 mg tablet Take 1 tablet (10 mg total) by mouth 3 (three) times a day as needed for muscle spasms Active doxycycline (DORYX) 100 mg EC tablet Take 1 tablet (100 mg total) by mouth daily Active fenofibrate nanocrystallized (TRICOR) 145 mg tablet Take 1 tablet (145 mg total) by mouth daily Active losartan (COZAAR) 50 mg tablet Take 1 tablet (50 mg total) by mouth daily Active mupirocin (BACTROBAN) 2 % creamIndications:per itoneal dialysis catheter care Apply topically 3 (three) times a day Active omeprazole (PriLOSEC) 20 mg capsule Take 1 capsule (20 mg total) by mouth daily Active triamcinolone (KENALOG) 0.1 % cream Apply topically 2 (two) times a day Active apixaban (ELIQUIS) 2.5 mg tabletIndications:VT E Prophylaxis Following Ortho Surgery Take 1 tablet (2.5 mg total) by mouth 2 (two) times a day 08/26/19 25 Active bisacodyL (DULCOLAX) 10 mg suppositoryIndicatio ns:constipation Insert 1 suppository (10 mg total) into the rectum daily as needed for constipation 08/26/19 25 Active Additional Information Patient not taking.Reported on 09/29/2024 calcium carbonate (TUMS) 500 mg (200 mg elemental calcium) chewable tablet Take 1 tablet/chew tab (500 mg total) by mouth daily as needed for indigestion or heartburn 08/26/19 25 026 Active buPROPion XL (WELLBUTRIN XL) 300 mg 24 hr tablet Take 1 tablet (300 mg total) by mouth daily 08/27/19 25 026 Active docusate sodium (COLACE) 100 mg capsuleIndications:c onstipation,Stool Softener Take 1 capsule (100 mg total) by mouth 2 (two) times a day 08/26/19 25 Active escitalopram (LEXAPRO) 10 mg tablet Take 1 tablet (10 mg total) by mouth daily 08/27/19 Active fluticasone-umeclidi n-vilanter (TRELEGY ELLIPTA) 100-62.5-25 mcg inhaler Inhale 1 puff daily 08/27/19 Active gabapentin (NEURONTIN) 300 mg capsule Take 1 capsule (300 mg total) by mouth 3 (three) times a day 90 capsule 08/26/19 Active lidocaine (LIDODERM) 5 % Place 1 patch on the skin daily for 12 hours Remove & discard patch within 12 hours or as directed by . 08/26/19 Active menthol-zinc oxide 0.44-20.6 % ointment Apply topically 2 (two) times a day as needed (dry skin) 08/26/19 Active ipratropium-albutero L (DUO-NEB) 0.5-2.5 mg/3 mL nebulizer solution Take 3 mL by nebulization every 6 (six) hours 08/26/19 Active methocarbamoL (ROBAXIN) 500 mg tablet Take 2 tablets (1,000 mg total) by mouth every 6 (six) hours 08/26/[address] (PROTONIX) 40 mg EC tabletIndications:Sy mptomatic Gastroesophageal Reflux Disease Take 1 tablet (40 mg total) by mouth daily 08/27/19 Active tamsulosin (FLOMAX) 0.4 mg extended release capsule Take 1 capsule (0.4 mg total) by mouth daily with dinner 08/26/19 Active rosuvastatin (CRESTOR) 40 mg tablet Take 1 tablet (40 mg total) by mouth nightly 30 tablet 08/26/19 Active ramelteon (ROZEREM) 8 mg tabletIndications:Sl eep-Onset Insomnia Take 1 tablet (8 mg total) by mouth nightly as needed for sleep 08/26/19 Active acetaminophen 500 mg capsule Take 1 capsule (500 mg total) by mouth every 8 (eight) hours 08/27/19 Active HYDROcodone-acetamin ophen (NORCO) 5-325 mg per tabletIndications:Pa in Take 1 tablet by mouth every 4 (four) hours as needed for pain 30 tablet 04/09/20 25 Active ranolazine ER (RANEXA) 500 mg 12 hr tablet TAKE 1 TABLET(500 MG) BY MOUTH TWICE DAILY 180 tablet 2 09/16/19 25 Active Active Problems Problem Noted Date Diagnosed Date Acute pain 08/20/2024 Assessment & Plan (08/25/2024 9:14 AM CDT): - Tylenol 1000 mg Q6HR SOCORRO - Oxycodone 10 mg Q4Hr PRN - Dilaudid 0.5 mg Q4Hr PRN- stopped 08/23 - Robaxin 1000 mg Q6Hr - On an epidural 08/21 08/22 stopped IV Pain medication 08/23 tolerating a PO diet, continue PO pain medications and an Epidural 08/24 c/w POPM and epidural, plan to dc tomorrow AM, DC Flores at [place] 08/25 d/c epidural, POPM Discharge to Rehab on a multimodal pain regimen CAD (coronary artery disease) 08/19/2024 Assessment & Plan (08/19/2024 9:28 AM CDT): #CAD #h/o NSTEMI s/p IRENE to the mid RCA, 03/2009; last [facility] 2013 -Follows with cards, last seen 03/2024 > at last appt, stopped imdur, trial of ranexa -Home ASA, crestor, metoprolol, ranexa -Medical management of recent +stress test iso CKD HTN (hypertension) 08/19/2024 Assessment & Plan (08/19/2024 9:25 AM CDT): #HTN with orthostatic hypotension - POA -Seen by outpatient cards last 03/2024 -Known orthostatic hypotension > conservative measures -Home losartan and metoprolol Orthostatic hypotension 08/19/2024 Assessment & Plan (08/19/2024 9:29 AM CDT): -Known, follows with cards -Conservative treatment at home; adequate fluid intake to stay hydrated, compression stockings, rise slowly from seated position HLD (hyperlipidemia) 08/19/2024 Assessment & Plan (08/19/2024 9:26 AM CDT): Home crestor COPD (chronic obstructive pulmonary disease) 06/2024 Assessment & Plan (08/19/2024 9:24 AM CDT): -chroinc emphysema 2/2 tobacco dependency -home trelegy ellipta T2DM (type 2 diabetes mellitus) 08/19/2024 Assessment & Plan (08/22/2024 4:12 PM CDT): HgbA1C 6.2 (08/19/2024) Rheumatoid arthritis 08/19/2024 Assessment & Plan (08/20/2024 10:37 AM CDT): - Plan to resume home plaquenil today Discharge planning issues 08/19/2024 Assessment & Plan (08/19/2024 9:26 AM CDT): 08/19 trauma admission > SICU CKD (chronic kidney disease) 08/19/2024 Assessment & Plan (08/25/2024 9:16 AM CDT): -Followed by Nephro outpatient; Dr. Martinez -Last sCr on file, 07/2020, 2.01 -08/19 sCr 2.52; elevated from baseline -08/20: Cr downtrending 2.04, adequate UOP -08/21: Cr 2.57, continue strict I/O -08/22 sCr 2.8, NS bolus, started IVF, UA sent- reflexed to CX 08/23 sCr pending, UOP 3L/24h, UCX remains NGTD 08/24 sCr 2.24, UOP 3L, UCX: No Growth Final; d/c flores @ [place] 08/25 sCr 2.1 at baseline, flores removed at 0600- void check pending Multiple fractures of ribs, bilateral, initial encounter for closed fracture 08/19/2024 Assessment & Plan (08/25/2024 9:17 AM CDT): #R R 4-8th rib fx w/ associated ptx #L posterior 6th rib fx - Rib Score calculated at 5 - Admit to SICU based on BJC Rib score - Aggressive pulmonary hygiene: elevate HOB, ISx10/hr while awake, duonebs, OOB as able - O2 therapy for goal O2 saturations > 90-94%. - Daily CXR - MMPR: APAP, gabapentin, anti-spasmodic, lidocaine patches to most painful area - Will consider lidocaine gtt and/or pain consult for epidural - PT consultation - Goals of care discussion in the event that intubation is necessary. -08/19 recommend CXR after OR with ortho iso intubation and positive pressure -08/20: Post op CXR stable ptx, continue daily ptx. Pain c/s for epidural. -08/22 CXR shows worsening right pleural effusion, encourage ambulation and IS -08/23 continue epidural and PO pain medications, IS, weaned to 3L O2 -08/24: c/w IS, wean O2 as tolerated, pain control -08/25: c/w IS, weaned off O2, 97% on RA Thoracic compression fracture 08/19/2024 Assessment & Plan (08/19/2024 9:33 AM CDT): SEE alt parameter Lumbar transverse process fracture 08/19/2024 Assessment & Plan (08/20/2024 10:39 AM CDT): Imaging evidence of T3 Vertebral body fx and L3 TP fx. - Spine c/s - TLSO for comfort - Supine lumbar XR, standing scoli XR when able - PT/OT as tolerated Fall, initial encounter 08/18/2024 Assessment & Plan (08/19/2024 9:22 AM CDT): -fall from 10ft roof #R R 4-8th rib fx w/ associated ptx #L posterior 6th rib fx #L3 TP fx #Anterior T3 vert body fx #L subcapital femoral neck fx Closed displaced fracture of left femoral neck 0 08/18/2024 Assessment & Plan (08/22/2024 6:19 AM CDT): - Ortho c/s --- 08/19: OR (Raghu Hernandez L FL[facility] STEWARD --- WBAT LLE Follow up with Dr. Thompson on 5/12 at 11:30, post op DVT prophylaxis Eliquis 2.5 mg 2 times a day for 4 weeks Rheumatoid arthritis involving multiple sites History of 2019 novel coronavirus disease (COVID -19) 10/12/2021 Tobacco abuse 07/29/2017 Palpitations 01/23/2017 CKD stage 3 due to type 2 diabetes mellitus 10/2016 Dyspnea on exertion 02/24/2016 Overview (08/24/2016): PAREDES (dyspnea on exertion) Orthostatic hypotension 02/24/2016 Overview (08/25/2016): Orthostatic hypotension Coronary artery abnormality 04/26/2015 Overview (08/25/2016): Coronary artery disease with stable angina pectoris Presence of stent in coronary artery 01/20/2014 Overview (08/25/2016): S/P coronary artery stent placement Mixed diabetic hyperlipidemi a associated with type 2 diabetes mellitus ([facility]) 01/20/2014 Overview (08/25/2016): Dyslipidemia Dizziness 01/20/2014 Overview (08/25/2016): Dizziness Hypertension associated with diabetes 01/20/2014 Overview (08/25/2016): HTN (hypertension), benign Diabetes mellitus 01/20/2014 Overview (08/25/2016): DM (diabetes mellitus) Chest pain 01/20/2014 Overview (08/25/2016): Chest pain Coronary artery disease of n ative artery of [place] heart with stable angina pectoris 01/20/2014 Overview (08/25/2016): CAD (coronary artery disease) Resolved Problems Problem Noted Date Diagnosed Date Resolved Date Dyslipidemia associated with type 2 diabetes mellitus ([facility]) 04/26/2015 04/06/2021 Overview (08/25/2016): DM type 2 with diabetic dyslipidemia Noncompliance with treatment 01/20/2014 03/19/2023 Overview (08/25/2016): Noncompliance Encounters Date Type Department Care Team Description 01/11/2025 11:30 AM CDT Office Visit [facility] Medicine Orthopaedic Surgery [address] [facility] [address] [place] [address] [place] [address] Tavon Thompson MD Closed displaced fracture of left femoral neck (HCC) (Primary Dx) 01/11/2025 11:00 AM CDT - 01/11/2025 11:59 PM CDT Hospital Encounter [facility] [address] [place] [id number] Tavon Thompson MD Closed displaced fracture of left femoral neck (HCC) Discharge Disposition: Discharge to home or self care 12/29/2024 2:05 PM CDT - 12/29/2024 11:59 PM CDT Hospital Encounter [facility] [address] [place] [phone] Rheumatoid arthritis, involving unspecified site, unspecified whether rheumatoid factor present ([facility]) Discharge Disposition: Discharge to home or self care 12/16/2024 Orders Only [facility] Health Information Management [address] [place] [address] Scanning, Provider from Last 3 Months Immunizations Immunization Administration Dates Next Due Tdap 08/18/2024 Surgical History Surgery Date Site/Laterality Comments CORONARY STENT PLACEMENT Coronary Stent Placement CARDIAC STENT PLACEMENT 05/20/2008 - 05/19/2009 Medical History Medical History Date Comments Chronic coronary artery disease Coronary Artery Disease Hypertension Hypertension Myocardial infarction ([facility]) 2008 Myoc ardial infarction Hx Other Medical Arrhythmias Sleep apnea Hypertension Hyperlipidemia CAD (coronary artery disease) COPD (chronic obstructive pulmonary disease) NSTEMI (non-ST elevated myocardial infarction) ( [facility]) 2008 Rheumatoid arthritis ([facility]) CKD (chronic kidney disease), stage III ([facility]) Family History Medical History Relation Name Comments Heart attack Father Stroke Father Anesthesia problems Neg Hx Malig Hyperthermia Neg Hx Pseudochol deficiency Neg Hx Relation Name Status Comments Father (Age 72) Mother (Age 72) Social History Tobacco Use Types Packs/Day Years Used Date Smoking Tobacco: Former Cigarettes Smokeless Tobacco: Never Tobacco Cessation:Counseling Given: Not Answered Comments:Quit 08/21/24 Alcohol Use Standard Drinks/Week Comments No 0 (1 standard drink = 0.6 oz pur e alcohol) AUDIT-C Answer Date Recorded Q1: How often do you have a drink containing alcohol? Never 09/29/2024 Q2: How many drinks containi ng alcohol do you have on a typical day when you are drinking? Patient does not drink Q3: How often do you have si x or more drinks on one occasion? Never 09/29/2024 Hunger Vital Sign Answer Date Recorded Within the past 12 months, y ou worried that your food would run out before you got the money to buy more. Never true 09/30/19 Within the past 12 months, t he food you bought just didn't last and you didn't have money to get more. Never true 09/29/2024 Personal Safety Answer Date Recorded Have you ever been in or are you currently in a harmful physical or emotional relationship or is someone making you feel afraid or unsafe? 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 Gender Identity Not on file Sexual Orientation Not on file Obstetrics History Last Filed Vital Signs Vital Sign Reading Time Taken Comments Blood Pressure 131/66 09/29/2024 10:17 AM CDT Pulse 71 09/29/2024 10:17 AM CDT Temperature 35.6 C (96 F) 09/29/2024 10:17 AM CDT Respiratory Rate 20 09/29/2024 10:1 7 AM CDT Oxygen Saturation 97% 09/29/2024 10: 17 AM CDT Inhaled Oxygen Concentration - - Weight 84.7 kg (186 lb 11.2 oz) 025 10:17 AM CDT Height 180.3 cm (5' 11) 09/17/2024 1:25 PM CDT Body Mass Index 26.04 09/17/2024 1:25 PM CDT Plan of Treatment Health Maintenance Due Date Last Done Comments Albumin Creatinine Ratio, Urine 1954 Colon Cancer Screening-Colonoscopy 1954 Depression Screening 1954 Hepatitis C Screening 1954 Dilated Eye Exam 1954 Foot Exam 1954 Hepatitis B Screening 1972 Zoster Vaccine (1 of 2) 1973 Well Visit 65+ 2019 Pneumococcal vaccine 65+ (3 of 3 - PCV) 02/08/2021 02/09/2020, 04/22/2012 Covid-19 Vaccine (7 - Pfizer risk season) 2025 03/16/2024, 02/08/2023, 02/08/2023, Additional history exists Influenza Vaccine (#1) 2025 , 02/08/2023, 03/24/2022, Additional history exists Hemoglobin A1C 02/19/2025 08/20/2024, 08/19/2024 eGFR 08/24/2025 08/24/2024, 04/0 10/2024, 08/22/2024, Additional history exists Fall Risk Assessment 08/26/2025 08/26/2024 Lipid Panel 09/17/2025 09/17/2024, 03/20, 03/19/2023, Additional history exists DTaP/Tdap/Td Vaccine (3 - Td or Tdap) 08/18/2034 08/18/2024, 07/07/2017 Abdominal Aortic Aneurysm (A AA) Screen Completed 08/18/2024 Medical Devices Implanted Type Area Storage Wharfage Clerk Device Identifier Shelf Expiration Date Model / Serial / Lot [employer] Seb 7mm 35mm Cannulated Hexagonal Cortical 4.5mm Full Thread Screw [id number] - [id number] Implanted:Qty: 1 on 08/19/2024 by Tavon Thompson MD at [facility] Left: Hip [employer] Seb 08/17/[id number] / / [id number] [employer] Actis 105mm Collar Hip 5 Standard Offset Stem Femoral [id number]--[id number] - [id number] Implanted:Qty: 1 on 08/19/2024 by Tavon Thompson MD at [facility] Left: Hip [employer] 03/19/2034 / / [id number] [employer] Articul/Nehemiah 28mm Skirt Hip +12mm 12/14 Taper Head Femoral Cocr Latex Free [id number] - [id number] Implanted:Qty: 1 on 08/19/2024 by Tavon Thompson MD at [facility] Left: Hip [employer] 06/19/2029 [id number] / / [id number] [employer] Self-Centering 53mm 28mm Hip Femur Head Bipolar Sterile Blue [id number] - [id number] Implanted:Qty: 1 on 08/19/2024 by Tavon Thompson MD at [facility] Left: Hip [employer] [id number] / / [id number] Procedures Procedure Name Priority Date/Time Associated Diagnosis Comments XR HIP LEFT W PELVIS 2 OR 3 VIEWS Schedule Routine, Read Routine (OP Routine) 01/11/2025 11:42 AM CDT Closed displaced fracture of left femoral neck (HCC) MRI PELVIS WO CONTRAST Schedule Routine, Read Routine (OP Routine) 12/29/2024 3:26 PM CDT Rheumatoid arthritis, involving unspecified site, unspecified whether rheumatoid factor present ([facility]) SCAN - OTHER ORDERS 12/16/2024 POCT LIPID PANEL Routine 09/17/2024 1:16 PM CDT Mixed diabetic hyperlipidemia associated with type 2 diabetes mellitus (CMS/HCC) (HCC) Coronary artery disease of [place] artery of [place] heart with stable angina pectoris EGFR Routine 08/24/2024 7:53 PM CDT HEMOGLOBIN A1C Routine 08/19/2024 4:[address] CHEST ABDOMEN PELVIS W CONTRAST ED 08/18/2024 5:37 PM CDT from Last 3 Months or Most Recently Relevant to Health Maintenance Results * XR Hip Left 2 or 3 Views W Pelvis (01/11/2025 11:42 AM CDT) Anatomical Region Laterality Modality Lower Extremities, Hip, Pelvis Left C omputed Radiography 01/11/2025 2:45 PM CDT Impressions 01/11/2025 6:01 PM CDT Unchanged left hip hemiarthroplasty in near-anatomic alignment with soft tissue edema about the left hip. Dictated by: Ila Chaidez M.D. The radiology attending physician has personally reviewed this study, and had reviewed and/or edited this written report and agrees with it. Electronically signed by: Heriberto [place] MD Narrative 01/11/2025 6:01 PM CDT EXAMINATION: XR HIP LEFT 2 OR 3 VIEWS W PELVIS HISTORY: Left femoral neck fracture status post hip replacement FINDINGS: 2 radiographs of the left hip and pelvis were provided for interpretation with comparison to 11/09/2024. Redemonstrated left hip hemiarthroplasty in near-anatomic alignment. No periprosthetic fractures or lucencies are identified. Alignment is unchanged. There is soft tissue edema about the left hip. Procedure Note Elaine [place] MD - 01/11/2025 EXAMINATION: XR HIP LEFT 2 OR 3 VIEWS W PELVIS HISTORY: Left femoral neck fracture status post hip replacement FINDINGS: 2 radiographs of the left hip and pelvis were provided for interpretation with comparison to 11/09/2024. Redemonstrated left hip hemiarthroplasty in near-anatomic alignment. No periprosthetic fractures or lucencies are identified. Alignment is unchanged. There is soft tissue edema about the left hip. IMPRESSION: Unchanged left hip hemiarthroplasty in near-anatomic alignment with soft tissue edema about the left hip. Dictated by: Ila Chaidez M.D. The radiology attending physician has personally reviewed this study, and had reviewed and/or edited this written report and agrees with it. Electronically signed by: Heriberto [place] MD us Tavon Thompson MD IMG XR PROCEDURE S Final Result * MRI Pelvis WO Contrast (12/29/2024 3:26 PM CDT) Anatomical Region Laterality Modality Pelvis N/A Magnetic Resonan ce 12/29/2024 4:19 PM CDT Impressions 12/29/2024 4:55 PM CDT 1. Left hip hemiarthroplasty in place with 9.4 cm fluid collection overlying the left posterolateral hip and greater trochanter. 2. Severe fatty atrophy of the left gluteal musculature with full-thickness tears of the left gluteus medius and minimus tendons. Dictated by: Lexx Covington MD The radiology attending physician has personally reviewed this study, and had reviewed and/or edited this written report and agrees with it. Electronically signed by: Nathan Auguste M.D. Narrative 12/29/2024 4:55 PM CDT EXAMINATION: 1. MRI PELVIS WO CONTRAST HISTORY: Rheumatoid arthritis with pelvic and left hip pain TECHNIQUE: Multiplanar multisequence MR examination of the pelvis was performed without intravenous contrast. COMPARISON: Comparison is made with radiographs dated 11/09/[address] abdomen pelvis dated 08/19/2024. 11/09/2024. FINDINGS: Partially imaged lower lumbar degenerative disc disease. The marrow signal of the lower lumbar spine, sacrum, pelvis, and proximal femora is normal. Specifically, there is no evidence of a fracture, stress fracture, or femoral head avascular necrosis. There is a left hip hemiarthroplasty in near-anatomic position. There is a fluid collection overlying the left posterolateral hip and greater trochanter measuring 9.4 x 6.5 x 3.1 cm (CC by AP by TV). Fluid from the collection is seen extending towards the left lateral subcutaneous soft tissues towards the surgical scar. Mild surrounding intramuscular edema. Mild right hip chondrosis is present with physiologic fluid within the right hip joint space. The pubic symphysis and sacroiliac joints are normal. The musculature of the pelvis and proximal femora is symmetric and normal in bulk. There is severe fatty atrophy of the left gluteal musculature. There is full-thickness tears of the left gluteal medius and minimus tendons. The adductor and right gluteal tendons and musculature are normal. The piriformis muscles are symmetric. The hamstring origins are normal. The sciatic nerves are normal in course and morphology. There is no evidence of bursitis. Limited evaluation of intrapelvic contents demonstrates a small fat-containing left inguinal hernia. Procedure Note Nathan Auguste MD PhD - 12/29/2024 EXAMINATION: 1. MRI PELVIS WO CONTRAST HISTORY: Rheumatoid arthritis with pelvic and left hip pain TECHNIQUE: Multiplanar multisequence MR examination of the pelvis was performed without intravenous contrast. COMPARISON: Comparison is made with radiographs dated 11/09/[address] abdomen pelvis dated 08/19/2024. 11/09/2024. FINDINGS: Partially imaged lower lumbar degenerative disc disease. The marrow signal of the lower lumbar spine, sacrum, pelvis, and proximal femora is normal. Specifically, there is no evidence of a fracture, stress fracture, or femoral head avascular necrosis. There is a left hip hemiarthroplasty in near-anatomic position. There is a fluid collection overlying the left posterolateral hip and greater trochanter measuring 9.4 x 6.5 x 3.1 cm (CC by AP by TV). Fluid from the collection is seen extending towards the left lateral subcutaneous soft tissues towards the surgical scar. Mild surrounding intramuscular edema. Mild right hip chondrosis is present with physiologic fluid within the right hip joint space. The pubic symphysis and sacroiliac joints are normal. The musculature of the pelvis and proximal femora is symmetric and normal in bulk. There is severe fatty atrophy of the left gluteal musculature. There is full-thickness tears of the left gluteal medius and minimus tendons. The adductor and right gluteal tendons and musculature are normal. The piriformis muscles are symmetric. The hamstring origins are normal. The sciatic nerves are normal in course and morphology. There is no evidence of bursitis. Limited evaluation of intrapelvic contents demonstrates a small fat-containing left inguinal hernia. IMPRESSION: 1. Left hip hemiarthroplasty in place with 9.4 cm fluid collection overlying the left posterolateral hip and greater trochanter. 2. Severe fatty atrophy of the left gluteal musculature with full-thickness tears of the left gluteus medius and minimus tendons. Dictated by: Lexx Covington MD The radiology attending physician has personally reviewed this study, and had reviewed and/or edited this written report and agrees with it. Electronically signed by: Nathan Auguste M.D. Monica Williamson MD IM MRI PROCEDURES Final Resul t * SCAN - OTHER ORDERS (12/16/2024) Provider Scanning Final Result * POCT lipid panel (09/17/2024 1:16 PM CDT) Cholesterol, POC 125 <200 MG/DL HDL, POC 53 >=40 mg/dL Triglycerides, POC 133 <=149 mg/dL LDL Cholesterol POC 46 <=129 mg/dL Chol/HDL Ratio, POC 0.9 NONE Non-HDL Cholesterol, POC 73 NONE mg/dL Cholesterol Total, POC 125 30 - 199 mg/dL Capillary blood 09/17/2024 1 :16 PM CDT us Kathryn Garcia MD POINT OF CARE TEST ORDE RABLES Final Result * (ABNORMAL) eGFR (08/24/2024 7:53 PM CDT) eGFR 33(L) >=60 mL/min/1. 73 m2 Comment: Interpretive Data Reference Interval Normal >/= 90 mL/min/1.73m2 Mildly decreased* 60 - 89 mL/min/1.73m2 Mildly to moderately decreased 45 - 59 mL/min/1.73m2 Moderately to severely decreased 30 - 44 mL/min/1.73m2 Severely decreased 15 - 29 mL/min/1.73m2 Kidney Failure < 15 mL/min/1.73m2 *Relative to young adult level Estimated glomerular filtration rate is determined by the 2020 CKD-EPI equation recommended by the National Kidney Foundation (A Unifying Approach to GFR Estimation: Recommendations of the NKF-ASK Task Force on Reassessing the Inclusion of Race in Diagnosing Kidney Disease, JASN 2020). The CKD-EPI equation should not be used for patients with unstable renal function and has not been validated in children and those over 70. Current interpretive data was last reviewed 2021. Blood 08/24/2024 7:53 PM CDT 08/24/2024 9:32 PM CDT us Shelia Muir NP LAB BLOOD ORDERABLES Final Result [facility] Department [place] [address] * (ABNORMAL) Hemoglobin A1c (08/19/2024 4:58 PM CDT) Hgb A1C 6.2(H) 4.0 - 5.6 % Estimated Average Glucose 131 mg/dL [facility] Comment: The ADA recommends reporting an estimated Average Glucose (eAG) with all Hemoglobin A1c results using the equation derived from a study of 507 normal and diabetic adults. Minority populations were underrepresented and children were not included. (Diabetes Care 2020; 43(S1): S66-S76). The eAG is not equivalent to a fasting glucose. Blood 08/19/2024 4:58 PM CDT 08/19/2024 5:16 PM CDT us Mike Morrow MD LAB BLOOD ORDERABLES [facility] Result [facility] Department [place] [address] * CT Chest Abdomen Pelvis W Contrast (08/18/2024 5:37 PM CDT) Anatomical Region Laterality Modality Body N/A Computed Tomogra phy 08/18/2024 6:05 PM CDT Impressions 08/18/2024 6:23 PM CDT 1. Small right anterior and basilar pneumothorax. 2. Comminuted, mildly displaced left femoral neck fracture. 3. Right 4th, 5th, 6th, 7th, and 8th rib fractures. The anterior right 5th and posterior 8th fractures are mildly displaced. 4. Mildly displaced fracture of the posterior left 6th rib. 5. Mildly displaced right transverse process of L3 fracture. 6. Nondisplaced anterior T3 vertebral body fracture, better seen on the dedicated thoracic spine reconstructions. The Critical results were discussed with the trauma team at the trauma bay by Dr. Canas on 08/18/2024 at 5:54 PM. Dictated by: Roxie Canas MD The radiology attending physician has personally reviewed this study, and had reviewed and/or edited this written report and agrees with it. Electronically signed by: Hilda Maxwell M.D. Narrative 08/18/2024 6:23 PM CDT EXAMINATION: Computed tomography of the chest, abdomen and pelvis with intravenous contrast HISTORY: Fall TECHNIQUE: Transaxial computed tomographic images of the chest, abdomen and pelvis were obtained with intravenous contrast according to the standard protocol after the uneventful administration of 90 mL Opti-Ray 350 intravenous contrast. COMPARISON: None FINDINGS: Chest: There is a small right basilar pneumothorax. There is scattered bibasilar atelectasis. No pulmonary consolidation. No definite left pneumothorax. There is paraseptal emphysema at the lung apices. The central airways are clear. Heart size is normal without pericardial effusion. Three-vessel coronary artery calcifications. Thoracic aortic calcifications. 7 mm right thyroid nodule. No thoracic lymphadenopathy. Abdomen/Pelvis: No suspicious hepatic lesion. The gallbladder is normal. No intrahepatic or extrahepatic biliary duct dilation. Normal pancreas, adrenal glands, spleen, and kidneys. No hydronephrosis. Urinary bladder is normal. The prostate is present. The small and large bowel is normal in course and caliber. High dense material is seen within the stomach, likely representing ingested contents. Normal appendix. No bowel obstruction. No free air. Small fat-containing left inguinal hernia. Moderate calcific atherosclerotic disease of the aortoiliac vessels. No intra-abdominal lymphadenopathy. There is a comminuted, mildly displaced fracture of the left femoral neck. The left femur remains seated within the acetabulum. There are fractures involving the anterior right 4th, 5th, 6th, and 7th ribs. The anterior 5th rib fracture is mildly displaced. There is a mildly displaced fracture of the posterior right 8th rib. There is a mildly displaced fracture of the posterior left 6th rib. There is a mildly displaced fracture of right transverse process of L3 (series 3, image 206). There is a nondisplaced anterior vertebral body fracture of T3, better seen on the dedicated reconstructions of the thoracic and lumbar spine. Procedure Note Hilda Maxwell MD - 08/18/2024 EXAMINATION: Computed tomography of the chest, abdomen and pelvis with intravenous contrast HISTORY: Fall TECHNIQUE: Transaxial computed tomographic images of the chest, abdomen and pelvis were obtained with intravenous contrast according to the standard protocol after the uneventful administration of 90 mL Opti-Ray 350 intravenous contrast. COMPARISON: None FINDINGS: Chest: There is a small right basilar pneumothorax. There is scattered bibasilar atelectasis. No pulmonary consolidation. No definite left pneumothorax. There is paraseptal emphysema at the lung apices. The central airways are clear. Heart size is normal without pericardial effusion. Three-vessel coronary artery calcifications. Thoracic aortic calcifications. 7 mm right thyroid nodule. No thoracic lymphadenopathy. Abdomen/Pelvis: No suspicious hepatic lesion. The gallbladder is normal. No intrahepatic or extrahepatic biliary duct dilation. Normal pancreas, adrenal glands, spleen, and kidneys. No hydronephrosis. Urinary bladder is normal. The prostate is present. The small and large bowel is normal in course and caliber. High dense material is seen within the stomach, likely representing ingested contents. Normal appendix. No bowel obstruction. No free air. Small fat-containing left inguinal hernia. Moderate calcific atherosclerotic disease of the aortoiliac vessels. No intra-abdominal lymphadenopathy. There is a comminuted, mildly displaced fracture of the left femoral neck. The left femur remains seated within the acetabulum. There are fractures involving the anterior right 4th, 5th, 6th, and 7th ribs. The anterior 5th rib fracture is mildly displaced. There is a mildly displaced fracture of the posterior right 8th rib. There is a mildly displaced fracture of the posterior left 6th rib. There is a mildly displaced fracture of right transverse process of L3 (series 3, image 206). There is a nondisplaced anterior vertebral body fracture of T3, better seen on the dedicated reconstructions of the thoracic and lumbar spine. IMPRESSION: 1. Small right anterior and basilar pneumothorax. 2. Comminuted, mildly displaced left femoral neck fracture. 3. Right 4th, 5th, 6th, 7th, and 8th rib fractures. The anterior right 5th and posterior 8th fractures are mildly displaced. 4. Mildly displaced fracture of the posterior left 6th rib. 5. Mildly displaced right transverse process of L3 fracture. 6. Nondisplaced anterior T3 vertebral body fracture, better seen on the dedicated thoracic spine reconstructions. The Critical results were discussed with the trauma team at the trauma bay by Dr. Canas on 08/18/2024 at 5:54 PM. Dictated by: Roxie Canas MD The radiology attending physician has personally reviewed this study, and had reviewed and/or edited this written report and agrees with it. Electronically signed by: Hilda Maxwell M.D. Chelsey Corral MD IMG CT PROCEDURES Final Result from Last 3 Months or Most Recently Relevant to Health Maintenance Insurance MEDICARE MEDICARE CIG MEDICARE SUPPLEMENT INSURANCE MEDICARE MEDIC[facility] INSURANCE Advance Directives For more information, please contact: [phone] * Full Code (Latest Code Status on File) Date Activated Date Inactivated Comments 08/18/2024 11:29 PM 08/26/2024 7:19 PM Care Teams National Sales Manager Relationship Specialty Start Date End Date Modesto Alonzo MD [address] [place] [address] PCP - General Family Medicine 08/19/24 Modesto Alonzo MD [address] [place] [address] 08/18/24
== END 2025-03-08 19:12 | disposition home or self-care (01) ==
PROVIDERS: Emergency Provider Nurse Practitioner Family; PCP Family Medicine
DX: S93.401A Sprain of unspecified ligament of right ankle, initial encounter (principal); X50.1XXA Overexertion from prolonged static or awkward postures, initial encounter; E78.5 Hyperlipidemia, unspecified; I10 Essential (primary) hypertension; E11.9 Type 2 diabetes mellitus without complications; F41.8 Other specified anxiety disorders; E55.9 Vitamin D deficiency, unspecified; J44.9 Chronic obstructive pulmonary disease, unspecified; I25.10 Atherosclerotic heart disease of native coronary artery without angina pectoris; Z87.891 Personal history of nicotine dependence
CPT/HCPCS: 73610; 99213; G0463

== ENCOUNTER 2025-04-08 14:40 | Emergency (ER) | payer MEDICARE, SELFPAY ==
--- NOTE | 2025-04-08 14:43 | ED_ITS ---
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 He reports he fell while blowing leaves of hit is elbow on a rock and this caused a large skin tear in the shape of a Y. Denies any bony tenderness to his elbow. States he is having some pain to the left hip. When he fell he landed on his left hip. Had an left hip arthoplasty earlier this year. Last tetanus was in 2018. Related Data Home Medications ?Medication ?Instructions ?Recorded ?Confirmed ?Last Taken ?Type aspirin 81 mg tablet,delayed 81 mg PO DAILY 01/06/20 0 02/01/25 Unknown History release acetaminophen 500 mg capsule 500 mg PO .q8 08/27/24 Unknown History pantoprazole 40 mg tablet,delayed 40 mg PO QAM 5 02/01/25 Unknown History release (Protonix) Allergies Allergy/AdvReac Type Severity Reaction Status Date / Time No Known Drug Allergies Allergy Mild Unknown Verified 03/08/25 18:52 Review of Systems Review of Systems: Pertinent positives per HPI. Patient denies any fever, chills, rash, headache, visual changes, dizziness, cough, runny nose, sore throat, shortness of breath, chest pain, palpitations, nausea, vomiting, diarrhea, constipation, abdominal pain, or any urinary issues. [facility] Past Medical History Medical History Rib fractures HLD (hyperlipidemia) HTN (hypertension) Closed displaced fracture of left femoral neck Anemia in chronic illness Accelerated essential hypertension Diabetes mellitus Fatigue Anemia Depression with anxiety Hip osteoarthritis Fatigue Vitamin D deficiency Abnormal PFT COPD (chronic obstructive pulmonary disease) Bullous pemphigus Dermatitis Pain, joint, hip, left Tobacco abuse Insomnia Other specified counseling CAD (coronary artery disease) Degenerative joint disease (DJD) of lumbar spine Family History Family History Father Diabetes mellitus Family history of malignant neoplasm Cerebrovascular accident Acute myocardial infarction Heart disease Mother Family history of renal cell carcinoma Diabetes mellitus Kidney failure Sibling Diabetes mellitus Social History Social History Smoking packs per day: 0.5 Smoking cigarettes per day: 10.0 Years smoked: 50 Smoking pack-years: 25.00 Smoking status: Former smoker Tobacco type: cigarettes Second hand tobacco smoke exposure: Yes Smoking end date: 08/18/24 Alcohol intake: never Substance use: never Substance use type: does not use Last use: 2021 Do You Feel Safe in your Home?: Yes Lack of Transportation: No Lack of Food: Never True Current Housing: I Have Housing Concerned About Future Housing: No Difficulty Paying Gas/Electric Bills: No Difficulty Paying for Meds: No Currently Unemployed: No Education: High School Diploma/GED Difficulty w/ Childcare or Family Care: No Living arrangements: with family Occupation/Education: retired 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 There is no relevant family history pertinent to the patient complaint. Exam Narrative: General: Well-developed, well nourished, in no apparent distress Head: Normocephalic, atraumatic. Cardio: Regular rate and rhythm, s1 and s2 normal, no murmur appreciated. Resp: Clear to auscultation bilaterally, no rhonchi, rales, wheezing or rubs. Musculoskeletal: No deformity, no bruising or swelling, mild tender to palpation over the lateral hip, grossly normal range of motion, muscle strength strong and equal, peripheral pulse strong, no edema, no cyanosis, normal gait and station Integumentary: [place], warm, and dry, Y shaped laceration/skin tear measuring 10cm x4cm. bleeding controlled some of the skin tissue was removed. Course Course Emergency Course: Portions of this record may have been created with voice recognition software. Level of Care: Express Care Visit Vital Signs Vital signs: Vital Signs Temperature 36.4 C 04/08/25 14:54 Pulse Rate 55 L 04/08/25 14:54 Respiratory Rate 18 04/08/25 14:54 Blood Pressure 147/73 H 04/08/25 14:54 Pulse Oximetry 97 04/08/25 14:54 Oxygen Delivery Room Air 04/08/25 14:54 Temperature 36.4 C 04/08/25 14:54 Pulse Rate 55 L 04/08/25 14:54 Respiratory Rate 18 04/08/25 14:54 Blood Pressure 147/73 H 04/08/25 14:54 Pulse Oximetry 97 04/08/25 14:54 Oxygen Delivery Room Air 04/08/25 14:54 Vital signs reviewed Procedures Laceration Laceration 1: Date: 04/08/25 Site: upper extremity (left elbow) Side (If applicable): left Size (cm): 14 Description: flap, irregular and clean Depth: simple, single layer Pre-repair: wound explored and irrigated ====== Skin Level ====== Skin layer closed with: steri strips ====== Subcutaneous Layer ====== ====== Muscle Layer ====== ====== Tendon Layer ====== MDM - Wound/Laceration MDM Narrative Medical decision making narrative: At the time of visit patient is resting comfortably on the exam table. Patient appears to be nontoxic. 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 He reports he fell while blowing leaves of hit is elbow on a rock and this caused a large skin tear in the shape of a Y. Denies any bony tenderness to his elbow. States he is having some pain to the left hip. When he fell he landed on his left hip. Had an left hip arthroplasty earlier this year. Last tetanus was in 2018. On exam patient has 10cm x 4cm Y shaped laceration to the left elbow- steri strips were placed to close wound since skin is very thin. Long arm ocl placed to allow for appropriate healing- keeping arm at a 90 degree. No bruising or swelling to the left hip X-ray of the left hip was ordered but patient declined Plan: Skin tear/laceration to the left elbow- repaired with steri strips. Rx for cephalexin was sent to the pharmacy. I suspect he has a left hip contusion. Follow up with his PCP in 3 days for wound check. Supportive measures were discussed with the patient and they voiced understanding discharge instructions and agrees to treatment plan. Return precautions reviewed Differential Diagnosis Differential diagnosis: Likely laceration, abscess, abrasion, avulsion of skin (Hip fracture) and other (Hip contusion) Discharge Plan Discharge Clinical Impression: Laceration of elbow Qualifiers: Encounter type: initial encounter Laterality: left Qualified Code(s): S51.012A - Laceration without foreign body of left elbow, initial encounter Contusion of left hip Qualifiers: Encounter type: initial encounter Qualified Code(s): S70.02XA - Contusion of left hip, initial encounter Patient Disposition: Home Condition: Stable Instructions: Antibiotic Form, Laceration (ED), Skin Adhesive Strips (ED), Hip Contusion (ED) Additional Instructions: Tetanus shot was updated in the clinic today. Rest and ice the left hip May take Tylenol/Motrin as needed for pain as per bottle directions Long arm OCL applied to your left arm to help with healing of the laceration Take cephalexin as prescribed Leave steri-strips in place- allow them to fall off on their own. May trim steri strips as they start to peel up Keep wound clean and dry Try to avoid getting wet Watch for signs and symptoms of infection- redness, streaking, swelling, purulent discharge, or increase in pain. Follow up with your PCP for wound check in 3 days Patient Language: Trinidadian Prescriptions: New cephalexin 500 mg capsule 500 mg PO Q12H 7 Days Qty: 14 0RF No Action aspirin 81 mg Tablet,Delayed Release (Dr/Ec) 81 mg PO DAILY bupropion HCl 300 mg tablet extended release 24 hr 300 mg PO QAM Qty: 90 1RF losartan 50 mg tablet 50 mg PO DAILY Qty: 90 3RF metoprolol succinate 100 mg tablet extended release 24 hr 100 mg PO DAILY Qty: 90 3RF Rx Instructions: begin 1 week after starting the losartan hydroxychloroquine [Plaquenil] 200 mg tablet 400 mg PO DAILY Qty: 180 0RF trazodone 50 mg tablet 50 mg PO .QHS Qty: 90 1RF escitalopram oxalate 10 mg tablet See Rx Instructions .ROUTE .COMPLEX Qty: 90 1RF Dose Instruction: TAKE 1 TABLET BY MOUTH DAILY Rx Instructions: TAKE 1 TABLET BY MOUTH DAILY acetaminophen 500 mg capsule 500 mg PO .q8 pantoprazole [Protonix] 40 mg tablet,delayed release (DR/EC) 40 mg PO QAM tamsulosin 0.4 mg capsule 0.4 mg PO QPM Qty: 30 0RF Patient Comments: with dinner Rx Instructions: TAKE ONE CAPSULE BY MOUTH DAILY gabapentin 300 mg capsule 300 mg PO TID Qty: 90 0RF rosuvastatin 40 mg Tablet 40 mg PO QPM Qty: 30 0RF Follow-up/Referrals: Modesto Alonzo MD [Primary Care Provider, [facility]] Time of Disposition: 15:39 Quality NIHSS Nursing Documentation ED NIHSS nursing documentation: reviewed/agree
[2025-04-08 14:54] VITALS: BP 147/73; PULSE 55; RESP 18; TEMP 36.4; O2SAT 97
[2025-04-08] MEDS: TETANUS,DIPHTHERIA,AC PERTUSSIS ADULT (0.5 ML) BOOSTRIX IM (15:12)
--- OUTSIDE RECORDS SUMMARY | 2025-04-08 17:40 | XMS_ITS | Clinical Summary ---
Author Organization [facility] Address [address] [place] [address] Care Team Providers Care Mergers And Acquisitions Attorney Name Role Phone Modesto Alonzo MD Primary Care Provider [phone] Modesto Alonzo MD Unavailable [phone] Allergies No known active allergies Medications tamsulosin [...] total) by mouth nightly 03/20/20 21 Active metoprolol XL (TOPROL-XL) 100 mg 24 hr tablet Take 1 tablet (100 mg total) by mouth daily 90 tablet 3 04/06/20 21 Active Additional Information Patient taking differently: 50 mgoral Daily, Reported on 03/25/2025 aspirin (Adult Low Dose Aspirin) 81 mg enteric coated tablet Take 1 tablet (81 mg total) by mouth daily 04/06/20 21 Active cyclobenzaprine (FLEXERIL) 10 mg tablet Take [...] mouth daily Active mupirocin (BACTROBAN) 2 % creamIndications:pe ritoneal dialysis catheter care Apply topically 3 (three) times a day Active omeprazole (PriLOSEC) 20 mg capsule Take 1 capsule (20 mg total) by mouth daily Active triamcinolone (KENALOG) 0.1 % cream Apply topically 2 (two) times a day Active apixaban (ELIQUIS) 2.5 mg tabletIndications:V TE Prophylaxis Following Ortho Surgery Take 1 tablet (2.5 mg total) by mouth 2 (two) times a day 08/26/19 25 Active bisacodyL (DULCOLAX) 10 mg suppositoryIndicati ons:constipation Insert 1 suppository (10 mg total) into the rectum daily as needed for constipation 08/26/19 Active Additional Information Patient not taking.Reported on 03/25/2025 calcium carbonate (TUMS) 500 mg (200 mg elemental calcium) chewable tablet Take 1 tablet/chew tab (500 mg total) by mouth daily as needed for indigestion or heartburn 08/26/19 25 026 Active buPROPion XL (WELLBUTRIN XL) 300 mg 24 hr tablet Take 1 tablet (300 mg total) by mouth daily 08/27/19 25 026 Active docusate sodium (COLACE) 100 mg capsuleIndications: constipation,Stool Softener Take 1 capsule (100 mg total) by mouth 2 (two) times a day 08/26/19 25 Active escitalopram (LEXAPRO) 10 mg tablet Take 1 tablet (10 mg total) by mouth daily 08/27/19 25 Active fluticasone-umeclid in-vilanter (TRELEGY ELLIPTA) 100-62.5-25 mcg inhaler Inhale 1 puff daily 08/27/19 25 Active gabapentin (NEURONTIN) 300 mg capsule Take [...] day as needed (dry skin) 08/26/19 Active ipratropium-albuter oL (DUO-NEB) 0.5-2.5 mg/3 mL nebulizer solution Take 3 mL by nebulization every 6 (six) hours 08/26/19 Active methocarbamoL (ROBAXIN) 500 mg tablet Take 2 tablets (1,000 mg total) by mouth every 6 (six) hours 08/26/[address] (PROTONIX) 40 mg EC tabletIndications:S ymptomatic Gastroesophageal Reflux Disease Take 1 tablet (40 mg total) by mouth daily 08/27/19 Active tamsulosin (FLOMAX) 0.4 mg extended release capsule Take 1 capsule (0.4 mg total) by mouth daily with dinner 08/26/19 Active rosuvastatin (CRESTOR) 40 mg tablet Take 1 tablet (40 mg total) by mouth nightly 30 tablet 08/26/19 Active ramelteon (ROZEREM) 8 mg tabletIndications:S leep-Onset Insomnia Take 1 tablet (8 mg total) by mouth nightly as needed for sleep 08/26/19 Active acetaminophen 500 mg capsule Take 1 capsule (500 mg total) by mouth every 8 (eight) hours 08/27/19 Active HYDROcodone-acetami nophen (NORCO) 5-325 mg per tabletIndications:P ain Take 1 tablet by mouth every 4 (four) hours as needed for pain 30 tablet 08/27/19 Active ranolazine ER (RANEXA) 500 mg 12 hr tablet TAKE 1 TABLET(500 MG) BY MOUTH TWICE DAILY 180 tablet 2 09/16/19 Active baricitinib (Olumiant) 2 mg tablet tablet Take 1 tablet (2 mg total) by mouth daily Active nitroglycerin (NITROSTAT) 0.4 mg SL tabletIndications:C oronary artery disease of [place] artery of [place] heart with stable angina pectoris Place 1 tablet (0.4 mg total) under the tongue every 5 (five) minutes as needed for chest pain 25 tablet 3 03/25/20 25 Active Rinvoq 15 mg tablet extended release 24 hr 03/15/20 21 025 Disconti nued(Alt ernate therapy) nitroglycerin (NITROSTAT) 0.[address] 1 tablet (0.4 mg total) under the tongue every 5 (five) minutes as needed for chest pain 25 tablet 3 02/21/20 23 025 Disconti nued(Reo rder) Active Problems Problem Noted Date Diagnosed Date Accelerated essential hypertension 03/24/2025 Acute respiratory failure with hypoxemia 025 Anemia in chronic illness 03/24/2025 Bullous pemphigus 03/24/2025 Debilitated 03/24/2025 Degenerative joint disease (DJD) of lumbar spine 03/24/2025 Depression with anxiety 03/24/2025 Dermatitis 03/24/2025 Elevated parathyroid hormone 03/24/2025 Gait abnormality 03/24/2025 Hip osteoarthritis 03/24/2025 Hypersomnia, unspecified 03/24/2025 Major depressive disorder, single episode, unspe cified 03/24/2025 Multiple traumatic injuries 03/24/2025 Rib fractures 03/24/2025 Right ankle sprain 03/24/2025 Secondary hyperparathyroidism, not elsewhere cla ssified 03/24/2025 Vitamin D deficiency 03/24/2025 Acute pain 08/20/2024 Assessment & Plan (08/25/2024 [...] POPM and epidural, plan to dc tomorrow AMSUNNY at [facility] 08/25 d/c epidural, POPM Discharge to Rehab on a multimodal pain regimen CAD (coronary artery disease) 08/19/2024 Assessment & Plan (08/19/2024 9:28 AM CDT): #CAD #h/o NSTEMI s/p IRENE to the mid RCA, 03/2009; last [facility] 2013 -Follows with cards, last seen 03/2024 [...] 5 - Admit to SICU based on [facility] Rib score - Aggressive pulmonary hygiene: elevate [...] IS, wean O2 as tolerated, pain control -4/8: c/w IS, weaned off O2, 97% on [...] 6:19 AM CDT): - Ortho c/s --- 4/2: OR (Donna Hernandez) L [employer] --- WBAT LLE Follow up with Dr. Thompson on 09/28 at 11:30, post op DVT prophylaxis Eliquis [...] a associated with type 2 diabetes mellitus ([facility]/HCC) 01/20/2014 Overview (08/25/2016): Dyslipidemia Dizziness 01/20/2014 Overview (08/25/2016): Dizziness Hypertension associated with diabetes 01/20/2014 Overview (08/25/2016): HTN (hypertension), benign Diabetes mellitus 01/20/2014 Overview (08/25/2016): DM (diabetes mellitus) Chest pain 01/20/2014 Overview (08/25/2016): Chest pain Coronary artery disease of n ative artery of [place] heart with stable angina pectoris 01/20/2014 Overview (08/25/2016): CAD (coronary artery disease) Resolved Problems Problem Noted Date Diagnosed Date Resolved Date Dyslipidemia associated with type 2 diabetes mellitus (CMS/HCC) 04/26/2015 04/06/2021 Overview (08/25/2016): DM type 2 with diabetic dyslipidemia Noncompliance with treatment 01/20/2014 03/19/2023 Overview (08/25/2016): Noncompliance Encounters Date Type Department Care Team Description 03/25/2025 1:30 PM 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 Medical Group Cardiology [address] [place] [id number] La Nena Braswell NP Coronary artery disease of [place] artery of [place] heart with stable angina pectoris (Primary Dx); Hypertension associated with diabetes (HCC); CKD stage 3 due to type 2 diabetes mellitus (HCC) 03/25/2025 Orders Only [facility] Medicine Orthopaedic Surgery [address] [place] [phone] Belen Mccloud MD Preoperative clearance (Primary Dx); Pain of left hip 03/24/2025 2:15 PM AUTOMATIC GLUING MACHINE OPERATOR Office Visit [facility] Orthopaedic Surgery [address] [place] [address] Belen Mccloud MD Pain of left hip (Primary Dx) 01/11/2025 11:30 AM CDT Office Visit [facility] Orthopaedic Surgery [address] [facility] Advanced Medicine 6th [place] [address] [place] [address] Tavon Thompson MD Closed displaced fracture of left femoral neck (HCC) (Primary Dx) 01/11/2025 11:00 AM CDT - 01/11/2025 11:59 PM CDT Hospital Encounter [facility] [address] [place] [address] Tavon Thompson MD Closed displaced fracture of left femoral neck (HCC) Discharge Disposition: Discharge to home or self care from Last 3 Months Immunizations Immunization Administration Dates Next Due Influenza, Trivalent, Split, Preservative Free, Intradermal 01/30/2025 Tdap 08/18/2024 Surgical History Surgery Date Site/Laterality Comments CORONARY STENT PLACEMENT Coronary Stent Placement CARDIAC STENT PLACEMENT 05/20/2008 - 05/19/2009 Medical History Medical History Date Comments Chronic coronary artery disease Coronary Artery Disease Hypertension Hypertension Myocardial infarction ([facility]) 2008 Myoc ardial infarction Hx Other Medical Arrhythmias Sleep apnea Hypertension Hyperlipidemia CAD (coronary artery disease) COPD (chronic obstructive pulmonary disease) NSTEMI (non-ST elevated myocardial infarction) ( [facility]) 2008 Rheumatoid arthritis ([facility]) CKD (chronic kidney disease), stage III ([facility]) Family History Medical History Relation Name Comments Heart attack Father Stroke Father Anesthesia problems Neg Hx Malig Hyperthermia Neg Hx Pseudochol deficiency Neg Hx Relation Name Status Comments Father (Age 72) Mother (Age 72) Social History Tobacco Use Types Packs/Day Years Used Date Smoking Tobacco: Every Day Cigarettes Smokeless Tobacco: Never Tobacco Cessation:Ready to Q uit: Not Asked; Counseling Given: Not Answered Comments:Quit 08/21/24 Alcohol Use [...] money to buy more. 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 Gender Identity Not on file Sexual Orientation Not on file Last Filed Vital Signs Vital Sign Reading Time Taken Comments Blood Pressure 138/80 03/25/2025 1:48 PM AUTOMATIC GLUING MACHINE OPERATOR Pulse 57 03/25/2025 1:48 PM AUTOMATIC GLUING MACHINE OPERATOR Temperature 35.6 C (96 F) 09/29/2024 10:17 AM CDT Respiratory Rate 20 09/29/2024 10:17 AM CDT Oxygen Saturation 95% 03/25/2025 1:48 PM AUTOMATIC GLUING MACHINE OPERATOR Inhaled Oxygen Concentration - - Weight 85.3 kg (188 lb) 03/25/2025 1:48 PM AUTOMATIC GLUING MACHINE OPERATOR Height 180.3 cm (5' 11) 03/25/2025 1:48 PM AUTOMATIC GLUING MACHINE OPERATOR Body Mass Index 26.22 03/25/2025 1:48 PM AUTOMATIC GLUING MACHINE OPERATOR Plan of Treatment Health Maintenance Due Date Last Done Comments Albumin Creatinine Ratio, Urine 1954 Colon Cancer Screening-Colonoscopy 1954 Depression Screening 1954 Hepatitis C Screening 1954 Dilated Eye Exam 1954 Foot Exam 1954 Hepatitis B Screening 1972 Pneumococcal vaccine 65+ (1 of 2 - PCV) 1973 Zoster Vaccine (1 of 2) 1973 Well Visit 65+ 2019 Covid-19 Vaccine (2024-2 6 season) 2025 03/16/2024, 02/08/2023, 03/23/2022, Additional history exists Hemoglobin A1C 02/19/2025 08/20/2024, 08/19/2024 eGFR 08/24/2025 08/24/2024, 04/0 10/2024, 08/22/2024, Additional history exists Fall Risk Assessment 08/26/2025 08/26/2024 Lipid Panel 09/17/2025 09/17/2024, 03/20, 03/19/2023, Additional history exists DTaP/Tdap/Td Vaccine (2 - Td or Tdap) 08/18/2034 08/18/2024 Abdominal Aortic Aneurysm (A AA) Screen Completed 08/18/2024 Influenza Vaccine Completed 01/30/2025 Medical Devices Implanted Type Area Auto Roller Device Identifier Shelf Expiration Date Model / Serial / Lot [employer] Seb 7mm 35mm Cannulated Hexagonal Cortical 4.5mm Full Thread Screw [id number] - [id number] Implanted:Qty: 1 on 08/19/2024 by Tavon Thompson MD at [facility] Left: Hip [employer] Seb 08/17/[id number] / / [id number] [employer] Actis 105mm Collar Hip 5 Standard Offset Stem Femoral [id number]--[id number] - [id number] Implanted:Qty: 1 on 08/19/2024 by Tavon Thompson MD at [facility] Left: Hip [employer] 03/19/2034 [id number] / / [id number] [employer] Articul/Nehemiah 28mm Skirt Hip +12mm 12/14 Taper Head Femoral Cocr Latex Free [id number] - [id number] Implanted:Qty: 1 on 08/19/2024 by Tavon Thompson MD at [facility] Left: Hip [employer] 06/19/2029 [id number] / / [id number] [employer] Self-Centering 53mm 28mm Hip Femur Head Bipolar Sterile Blue [id number] - [id number] Implanted:Qty: 1 on 08/19/2024 by Tavon Thompson MD at [facility] Left: Hip [employer] [id number] / / [id number] Procedures Procedure Name Priority Date/Time Associated Diagnosis Comments XR HIP LEFT W PELVIS 2 OR 3 VIEWS Schedule Routine, Read Routine (OP Routine) 01/11/2025 11:42 AM CDT Closed displaced fracture of left femoral neck (HCC) POCT LIPID PANEL Routine 09/17/2024 1:16 PM CDT Mixed diabetic hyperlipidemia associated with type 2 diabetes mellitus (CMS/HCC) (HCC) Coronary artery disease of [place] artery of [place] heart with stable angina pectoris EGFR Routine [...] it. Electronically signed by: Heriberto Gardner MD Tavon Thompson MD IMG XR PROCEDURE S Final Result * POCT lipid panel (09/17/2024 1:16 PM CDT) [facility] Cholesterol, POC 125 <200 MG/DL HDL, POC 53 >=40 mg/dL Triglycerides, POC 133 <=149 mg/dL LDL Cholesterol POC 46 <=129 mg/dL Chol/HDL Ratio, POC 0.9 NONE Non-HDL Cholesterol, POC 73 NONE mg/dL Cholesterol Total, POC 125 30 - 199 mg/dL Capillary blood 09/17/2024 1 :16 PM CDT Kathryn Garcia MD POINT OF CARE TEST DANIELLE SAHNI Final Result * (ABNORMAL) eGFR (08/24/2024 7:53 PM CDT) [facility] eGFR 33(L) >=60 mL/min/1. 73 m2 Comment: [...] of Race in Diagnosing Kidney Disease, JASN 202). The CKD-EPI equation should not be used for patients with unstable renal function and has not been validated in children and those over 70. Current interpretive data was last reviewed 2021. Blood 08/24/2024 7:53 PM CDT 08/24/2024 9:32 PM CDT us Shelia Muir NP LAB BLOOD ORDERABLES Final Result Performing Organization Address [facility] de Phone Number [facility] [place] [address] * (ABNORMAL) Hemoglobin A1c (08/19/2024 4:58 PM CDT) Hgb A1C 6.2(H) 4.0 - 5.6 % Estimated Average Glucose 131 mg/dL [facility] Comment: The ADA recommends reporting an estimated [...] us Mike Morrow MD LAB BLOOD ORDERABLES Jess l Result Performing Organization Address [facility] Co de Phone Number [facility] [place] [address] * CT Chest Abdomen Pelvis W Contrast [...] Recently Relevant to Health Maintenance Insurance MEDICARE [facility] Address: [facility] [address] [place] [address] MEDICARE CIG MEDICARE SUPPLEMENT INSURANCE [place] [id number] MEDICARE MEDICARE [employer] MEDICARE SUPPLEMENT INSURANCE Advance Directives For more information, please contact: [phone] * Full Code (Latest Code Status on File) Date Activated Date Inactivated Comments 08/18/2024 11:29 PM 08/26/2024 7:19 PM Care Teams Mergers And Acquisitions Attorney Relationship Specialty Start Date End Date Modesto Alonzo MD [address] [place] [address] PCP - General Family Medicine 08/19/24 Modesto Alonzo MD [address] [place] [address] 08/18/24
== END 2025-04-08 15:48 | disposition home or self-care (01) ==
PROVIDERS: Emergency Provider Nurse Practitioner Family; PCP Family Medicine
DX: S51.012A Laceration without foreign body of left elbow, initial encounter (principal); W19.XXXA Unspecified fall, initial encounter; Y93.H1 Activity, digging, shoveling and raking; S70.02XA Contusion of left hip, initial encounter; Z23 Encounter for immunization; Z87.891 Personal history of nicotine dependence; E11.9 Type 2 diabetes mellitus without complications; I10 Essential (primary) hypertension; I25.10 Atherosclerotic heart disease of native coronary artery without angina pectoris; J44.9 Chronic obstructive pulmonary disease, unspecified; E78.5 Hyperlipidemia, unspecified; F41.8 Other specified anxiety disorders; M47.816 Spondylosis without myelopathy or radiculopathy, lumbar region; Z79.82 Long term (current) use of aspirin
CPT/HCPCS: 90471; 90715; 99213; A4565; G0463